=== PATIENT | male | born 1965 | race Caucasian/White ===

== ENCOUNTER 2017-12-03 18:23 | Emergency (ER) | payer OTHER ==
[~2017-12-03] VITALS: Ht 170.2 cm; Wt 63.5 kg
[~2017-12-03 18:23] MED LIST: ACET325 PO; ALUMAG30SU PO; ASCO500 PO; Advil200 M1 PO; Allergy Medicin25 MG PO; CHOL10002; CHOL10002 PO; CIPR250 PO; CODACE30 PO; CODGUAEL PO; Central-Vite1 EAC3 PO; DIPH50 PO; EAR WAX DROPS15 ML BOTHEARS; IBUP400 PO; IODINE TP; LAVAP17G PO; LEVFLO500 PO; LEVO750 PO; LOPE2C PO; MAALOX ADVANCE1 EACH PO; Multiple Vitam1 EAC1 PO; OMEP40CA12 PO; Omeprazole20 M1 PO; ROBITUSSIN COU118 M1 PO; SERT50 PO; SKIEMOTC TOP; TAMS.4ER PO; TRIPLE ANTIBIO1 EACH TP; Zosyn 4.54.5 GM/100 IV; [UNRECOGNIZED DRUG - OTHER] TOP
[2017-12-03 18:57] LABS: BASOPHILS ABSOLUTE AUTO 0.03 K/mm3 (0.00-0.23); BASOPHILS PERCENT AUTO 0 % (0-2); EOSINOPHILS ABSOLUTE AUTO 0.12 K/mm3 (0.00-0.68); EOSINOPHILS PERCENT AUTO 1 % (0-6); Hematocrit 40.7 % (37.0-53.0); Hemoglobin 13.8 g/dL (13.5-17.5); IMMATURE GRAN ABSOLUTE AUTO 0.02 K/mm3 (0.00-0.10); IMMATURE GRAN PERCENT AUTO 0 % (0-1); LYMPHOCYTES ABSOLUTE AUTO 1.41 K/mm3 (0.84-5.20); LYMPHOCYTES PERCENT AUTO 14 % (21-46); MONOCYTES PERCENT AUTO 14 % (4-13); Mean Corpuscular HGB 28.9 pg (26.0-34.0); Mean Corpuscular HGB Conc 33.9 g/dL (31.5-36.5); Mean Corpuscular Volume 85 fL (80-100); Mean Platelet Volume 9.4 fL (9.1-12.4); NEUTROPHILS ABSOLUTE AUTO 6.84 K/mm3 (1.96-9.15); NEUTROPHILS PERCENT AUTO 70 % (41-73); Platelet Count 236 K/mm3 (150-400); RDW Standard Deviation 43.5 fL (35.1-46.3); Red Blood Cell Count 4.78 M/mm3 (4.30-5.90); White Blood Cell Count 9.82 K/mm3 (4.00-11.30)
[2017-12-03 19:11] LABS: Alanine Aminotransfer (ALT/SGP 18 U/L (12-78); Albumin, Blood 3.7 g/dL (3.4-5.0); Albumin/Globulin Ratio 0.9 (0.8-1.8); Alk Phos 154 U/L (50-136); Anion Gap 10 mmol/L (6-16); Aspartate Aminotrans (AST/SGOT 14 U/L (12-37); Bilirubin, Total 0.4 mg/dL (0.1-1.0); Blood Urea Nitrogen 15 mg/dL (8-24); Bun/Creatinine Ratio 15.4 (12.0-20.0); CO2, Blood 22 mmol/L (21-32); Calcium, Blood 8.5 mg/dL (8.5-10.1); Chloride, Blood 104 mmol/L (98-108); Creatinine, Blood 0.97 mg/dL (0.60-1.20); Globulin, Blood 4.2 g/dL (2.2-4.0); Glomerular Filtration Rate >60 (60-); Glucose, Blood 113 mg/dL (70-99); Potassium, Blood 3.9 mmol/L (3.5-5.5); Sodium, Blood 136 mmol/L (136-145); Total Protein, Blood 7.9 g/dL (6.4-8.2)
[2017-12-03 21:30] LABS: Source, Urine Clean Catch
[2017-12-03 21:32] LABS: Bilirubin, Urine Neg (Neg); Blood, Urine 3+ (Neg); Glucose Qualitative, Urine Neg (Neg); Ketones, Urine Neg (Neg); Leukocyte Esterase, Urine 3+ (Neg); Nitrite, Urine Neg (Neg); Protein, Urine 2+ (Neg); Specific Gravity, Urine 1.015 (1.003-1.022); Urobilinogen, Urine NORM (Normal)
[2017-12-03] MEDS ORDERED: Lisinopril2.5 MG (21:37)
[2017-12-03 21:39] LABS: Appearance, Urine Cloudy (Clear); Color, Urine Yellow (P-Yellow)
[2017-12-03 21:40] LABS: Red Blood Cells, Urine 50-100 /hpf (0-2); White Blood Cells, Urine 50-100 /hpf (0-5)
[2017-12-03 21:41] LABS: Amorphous Light (0-Heavy); Bacteria Many /hpf; Squamous Epithelial Cells Not Seen /hpf (Few)
[2017-12-03 22:18] LABS: Influenza A Negative (NEGATIVE); Influenza B Negative (NEGATIVE)
[2017-12-03] MEDS ORDERED: Cipro500 MG PO (22:30)
== END 2017-12-03 22:56 | disposition home or self-care (01) ==
LOC: ER 18:23
PROVIDERS: Emergency Medicine
DX: T83.511A Infection and inflammatory reaction due to indwelling urethral catheter, initial encounter (principal); N39.0 Urinary tract infection, site not specified; R05 Cough; R09.81 Nasal congestion; Z88.1 Allergy status to other antibiotic agents; Z88.8 Allergy status to other drugs, medicaments and biological substances; Z79.899 Other long term (current) drug therapy
CPT/HCPCS: 36415; 71045; 80053; 81001; 85025; 87804; 99283

== ENCOUNTER 2018-12-18 16:38 | Inpatient (IN) | payer OTHER ==
[~2018-12-18] VITALS: Ht 170.2 cm; Wt 59.0 kg
[~2018-12-18 16:38] MED LIST changes: -CHOL10002; +Cipro500 MG PO
[2018-12-18 18:00] LABS: Source, Urine Catheter
[2018-12-18 18:14] LABS: BASOPHILS ABSOLUTE AUTO 0.02 K/mm3 (0.00-0.23); BASOPHILS PERCENT AUTO 0 % (0-2); EOSINOPHILS PERCENT AUTO 0 % (0-6); Hematocrit 42.2 % (37.0-53.0); Hemoglobin 13.8 g/dL (13.5-17.5); IMMATURE GRAN ABSOLUTE AUTO 0.17 K/mm3 (0.00-0.10); IMMATURE GRAN PERCENT AUTO 1 % (0-1); LYMPHOCYTES PERCENT AUTO 4 % (21-46); MONOCYTES ABSOLUTE AUTO 1.86 K/mm3 (0.16-1.47); MONOCYTES PERCENT AUTO 9 % (4-13); Mean Corpuscular HGB 29.4 pg (26.0-34.0); Mean Corpuscular HGB Conc 32.7 g/dL (31.5-36.5); Mean Corpuscular Volume 90 fL (80-100); Mean Platelet Volume 9.8 fL (9.1-12.4); NEUTROPHILS ABSOLUTE AUTO 17.04 K/mm3 (1.96-9.15); NEUTROPHILS PERCENT AUTO 86 % (41-73); Platelet Count 309 K/mm3 (150-400); RDW Coefficient Variation 13.9 % (11.7-14.2); RDW Standard Deviation 46.1 fL (35.1-46.3); White Blood Cell Count 19.89 K/mm3 (4.00-11.30)
[2018-12-18 18:16] LABS: Bilirubin, Urine Neg (Neg); Blood, Urine 5+ (Neg); Glucose Qualitative, Urine Neg (Neg); Ketones, Urine Neg (Neg); Leukocyte Esterase, Urine 3+ (Neg); Nitrite, Urine Neg (Neg); Protein, Urine 3+ (Neg); Urobilinogen, Urine NORM (Normal)
[2018-12-18 18:25] LABS: Albumin, Blood 3.5 g/dL (3.4-5.0); Albumin/Globulin Ratio 0.7 (0.8-1.8); Bilirubin, Total 1.2 mg/dL (0.1-1.0); Bun/Creatinine Ratio 14.4 (12.0-20.0); Calcium, Blood 9.5 mg/dL (8.5-10.1); Creatinine, Blood 2.15 mg/dL (0.60-1.20); Globulin, Blood 5.1 g/dL (2.2-4.0); Potassium, Blood 3.9 mmol/L (3.5-5.5); Total Protein, Blood 8.6 g/dL (6.4-8.2)
[2018-12-18 18:46] LABS: Appearance, Urine Cloudy (Clear); Color, Urine Yellow (P-Yellow)
[2018-12-18 18:47] LABS: White Blood Cells, Urine TNTC /hpf (0-5)
[2018-12-18 18:48] LABS: Bacteria Many /hpf; Squamous Epithelial Cells Not Seen /hpf (Few)
[2018-12-18] MEDS ORDERED: Cerovite Advan1 EACH PO (20:02)
[2018-12-18] MEDS ORDERED: C-1000 WITH R1000 MG PO (20:03)
[2018-12-18 20:05] LABS: Source, Urine Catheter
[2018-12-18] MEDS ORDERED: Lisinopril2.5 MG PO (20:05)
[2018-12-18] MEDS ORDERED: SERT50 PO (20:06)
[2018-12-18] MEDS ORDERED: CHOL10002 PO (20:07)
[2018-12-18 20:11] LABS: Bilirubin, Urine Neg (Neg); Blood, Urine 2+ (Neg); Glucose Qualitative, Urine Neg (Neg); Ketones, Urine 1+ (Neg); Leukocyte Esterase, Urine 3+ (Neg); Nitrite, Urine Neg (Neg); Protein, Urine 2+ (Neg); Specific Gravity, Urine 1.015 (1.003-1.022); Urobilinogen, Urine NORM (Normal)
[2018-12-18 20:27] LABS: Appearance, Urine Hazy (Clear); Color, Urine Yellow (P-Yellow)
[2018-12-18 20:28] LABS: Squamous Epithelial Cells Not Seen /hpf (Few); White Blood Cells, Urine TNTC /hpf (0-5)
[2018-12-18 20:30] LABS: Bacteria Mod /hpf
[2018-12-18 20:54] LABS: Magnesium, Blood 2.1 mg/dL (1.6-2.4); Phosphorus, Blood 2.4 mg/dL (2.5-4.9); Uric Acid, Blood 5.6 mg/dL (3.5-7.2)
--- NOTE | 2018-12-19 03:59 | NUR ---
Shift summary: Pt admitted last pm for uti. Andrew in place and urine sample sent to lab. Pt developmentally delayed and bedridden but can answer questions appropriately and is cooperative with cares. Both hands are contracted so pt needs help with feeding. Levoquin started in ER. Admission completed as much as I could do. Pt not a good historian.
[2018-12-19 05:28] LABS: Hematocrit 35.3 % (37.0-53.0); Hemoglobin 11.5 g/dL (13.5-17.5); Mean Corpuscular HGB 29.3 pg (26.0-34.0); Mean Corpuscular HGB Conc 32.6 g/dL (31.5-36.5); Mean Corpuscular Volume 90 fL (80-100); Mean Platelet Volume 9.6 fL (9.1-12.4); Platelet Count 213 K/mm3 (150-400); RDW Standard Deviation 46.4 fL (35.1-46.3); Red Blood Cell Count 3.93 M/mm3 (4.30-5.90)
[2018-12-19 06:01] LABS: Bun/Creatinine Ratio 18.3 (12.0-20.0); Calcium, Blood 8.4 mg/dL (8.5-10.1); Creatinine, Blood 1.42 mg/dL (0.60-1.20); Magnesium, Blood 2.1 mg/dL (1.6-2.4); Potassium, Blood 3.6 mmol/L (3.5-5.5)
--- NOTE | 2018-12-19 11:25 | NUR ---
PATIENTS CAREGIVER FROM NURSING HOME WAS HERE AND STATED PATIENT IS NOT A FEEDER AND IS CAPABLE OF FEEDING HIMSELF IF FOOD IS CHOPPED INTO SMALL BITE SIZE PIECES. THIS IS HOW IT IS DONE AT HOME. SO THIS SI WHAT I WILL TRY FOR LUNCH.
--- NOTE | 2018-12-19 12:51 | NUR ---
PATIENT WAS ABLE TO FEED HIMSELF THIS AFTERNOON WHEN WE GAVE HIM HIS TRAY FOR LUNCH. WE ORDERED FINGER FOODS AND LET HIM TRY IT AND WAS VERY SUCCESSFUL AND WAS ABLE TO TELL ME HE WAS DONE.
--- NOTE | 2018-12-19 19:21 | NUR ---
SHIFT SUMMARY: NO ACUTE CHANGES TO REPORT THIS SHIFT. PT DEVELOPMENTALLY DELAYED; CALM; APPROPRIATE; COOPERATIVE WITH CARE. MEDICATED FOR PAIN PER EMAR. TELE IN PLACE; ST @ 102 PER COOLING TOWER OPERATOR DURING MORNING ASSESSMENT. UTI; CHRONIC RODRIGUEZ; POSITIVE BLOOD CULTURE REPORTED BY LAB THIS SHIFT; DR JANE. NS CONTINUING; IV ABX CONTINUING. REPORT GIVEN TO ONCOMING RN.
[2018-12-20 05:20] LABS: BASOPHILS ABSOLUTE AUTO 0.01 K/mm3 (0.00-0.23); BASOPHILS PERCENT AUTO 0 % (0-2); EOSINOPHILS ABSOLUTE AUTO 0.01 K/mm3 (0.00-0.68); EOSINOPHILS PERCENT AUTO 0 % (0-6); Hematocrit 33.8 % (37.0-53.0); Hemoglobin 11.1 g/dL (13.5-17.5); IMMATURE GRAN ABSOLUTE AUTO 0.04 K/mm3 (0.00-0.10); IMMATURE GRAN PERCENT AUTO 1 % (0-1); LYMPHOCYTES ABSOLUTE AUTO 1.18 K/mm3 (0.84-5.20); LYMPHOCYTES PERCENT AUTO 16 % (21-46); MONOCYTES ABSOLUTE AUTO 1.08 K/mm3 (0.16-1.47); MONOCYTES PERCENT AUTO 14 % (4-13); Mean Corpuscular HGB Conc 32.8 g/dL (31.5-36.5); Mean Corpuscular Volume 88 fL (80-100); Mean Platelet Volume 9.9 fL (9.1-12.4); NEUTROPHILS ABSOLUTE AUTO 5.17 K/mm3 (1.96-9.15); NEUTROPHILS PERCENT AUTO 69 % (41-73); Platelet Count 185 K/mm3 (150-400); RDW Coefficient Variation 14.1 % (11.7-14.2); RDW Standard Deviation 45.6 fL (35.1-46.3); Red Blood Cell Count 3.83 M/mm3 (4.30-5.90); White Blood Cell Count 7.49 K/mm3 (4.00-11.30)
[2018-12-20 05:39] LABS: Anion Gap 12 mmol/L (6-16); Blood Urea Nitrogen 20 mg/dL (8-24); Bun/Creatinine Ratio 19.4 (12.0-20.0); CO2, Blood 23 mmol/L (21-32); Calcium, Blood 8.3 mg/dL (8.5-10.1); Chloride, Blood 107 mmol/L (98-108); Creatinine, Blood 1.03 mg/dL (0.60-1.20); Glomerular Filtration Rate >60 (60-); Glucose, Blood 97 mg/dL (70-99); Potassium, Blood 3.2 mmol/L (3.5-5.5); Sodium, Blood 142 mmol/L (136-145)
--- NOTE | 2018-12-20 07:46 | NUR ---
SHIFT SUMMARY PT HAD NO COMPLAINTS OR ISSUES NOTED. PT SLEPT T/O THE SHIFT. CALL LIGHT IN REACH.
--- NOTE | 2018-12-20 16:51 | NUR ---
NOTIFIED DR. EL PT REFUSING PO POTASSIUM. DR. EL SAID HE WILL PUT IN ORDERS FOR IV POTASSIUM. NO OTHER NEW ORDERS AT THIS TIME.
--- NOTE | 2018-12-20 18:07 | NUR ---
SHIFT SUMMARY- PT RESPONDS TO VERBAL STIMULI. PT UNABLE TO ANSWER ANY OF MY AXO QUESTIONS. PT ABLE TO ANSWER SIMPLE YES/NO QUESTIONS. PT REFUSED PO POTASSIUM THIS AM. DR. EL ORDERED IV POTASSIUM. PT DENIES PAIN. DENIES N/V. DENIES SOB. RESP E/U ON RA. NSR IN THE 70'S PER PCU BOARDING SPECIALIST. RODRIGUEZ PATENT AND DRAINING CLEAR YELLOW URINE. TURNS Q2H. BED ALARM ON. CALL LIGHT IN REACH. NO OTHER SIGNIFICANT CHANGES THIS SHIFT.
--- NOTE | 2018-12-21 05:05 | NUR ---
SHIFT SUMMARY PT HAS SLEPT T/O SHIFT. NO ISSUES NOTED. PT CURRENTLY SLEEPING AND BREATHING EASY. CALL LIGHT IN REACH.
--- NOTE | 2018-12-21 17:46 | NUR ---
SHIFT SUMMARY- PT DENIES PAIN. DENIES N/V. DENIES SOB. RESP E/U ON RA. TURNS Q2H. NSR WITH OCCASSIONAL PVC'S AT 74 PER PCU AERIAL TRAM OPERATOR. IV ANTIBIOTICS DC'D. PT STARTED ON PO CIPRO THIS AM. NO OTHER SIGNIFICANT CHANGES THIS SHIFT.
--- NOTE | 2018-12-22 05:28 | NUR ---
SHIFT SUMMARY PT SLEPT T/O SHIFT. NO ISSUES NOTED. PT CURRENTLY SLEEPING AND BREATHING EASY. CALL LIGHT IN REACH.
--- NOTE | 2018-12-22 12:03 | NUR ---
JAIRO FROM [facility] [address] CALLED IN FOR AN UPDATE, DISCHARGE WOULD BE PREFERRED PRIOR TO 1500, THIS IS WHEN THE SENIOR ENGINEERING TECHNICIAN IS AVAILABLE.
[2018-12-22] MEDS ORDERED: CIPR500 PO (15:59)
[2018-12-22] MEDS ORDERED: PROBIOTIC GOLD1 EACH PO (16:01)
--- NOTE | 2018-12-22 17:51 | NUR ---
SHIFT SUMMARY PT A&O TO SELF. MOSTLY NON-VERBAL AT BASE LINE, SPEECH IS UNCOMPREHENSIBLE. PT CALM AND COOPERATIVE WITH CARE. RESTING IN BED DURING SHIFT, REPOSIIONED FOR COMFORT, PT ASSIST WITH REPOSITIONING. PT DENIES PAIN, SOB AND N/V, NO S/SX OF DISTRESS. PT RECEIVING PO ANTIBITOICS AN PROBIOTICS. VSS. NO ACUTE CHANGES NOTED DURING SHIFT. PT CAREGIVERJAIRO IN TO PICK PT UP FOR DISCHARGE. CAREGIVER/PATIENT EDUCATED OF DISCHARGE INSTRUCTIONS, MEDICATIONS AND FOLLOW UP APPOINTMENTS. PRESCRIPTIONS FAXED TO [employer] [employer], PER CAREGIVER REQUEST. PT LEFT ROOM VIA HOME WHEELCHAIR WITH JAIRO AT [id number]. PT STABLE UPON DISCAHRGE.
== END 2018-12-22 16:51 | disposition home or self-care (01) | DRG 698 ==
LOC: ER 16:38 → MEDS 19:56 → ENPENDDIS 12-22 15:31 → MEDS 12-22 16:51
PROVIDERS: Emergency Medicine; Hospitalist; Nurse Practitioner Acute Care; Physician Assistant; ADMIT Internal Medicine
DX: T83.511A Infection and inflammatory reaction due to indwelling urethral catheter, initial encounter (principal); A41.9 Sepsis, unspecified organism; R65.20 Severe sepsis without septic shock; N17.9 Acute kidney failure, unspecified; N12 Tubulo-interstitial nephritis, not specified as acute or chronic; F32.9 Major depressive disorder, single episode, unspecified; R62.50 Unspecified lack of expected normal physiological development in childhood; K21.9 Gastro-esophageal reflux disease without esophagitis; Z88.1 Allergy status to other antibiotic agents
CPT/HCPCS: 36415; 51702; 74177; 76770; 80048; 80053; 81001; 82550; 82570; 83605; 83735; 84100; 84132; 84300; 84550; 85025; 85027; 87040; 87077; 87086; 87147; 87186; 96361; 96365; 99284-25; A9270-GY; J1650; J1956; J3480; J7030; J7120; Q9967

== ENCOUNTER 2019-08-20 17:06 | Emergency (ER) | payer OTHER ==
[~2019-08-20] VITALS: Ht 170.2 cm; Wt 72.6 kg
[~2019-08-20 17:06] MED LIST changes: +C-1000 WITH R1000 MG PO; +CIPR500 PO; +Cerovite Advan1 EACH PO; +DOCU100 PO; +Lisinopril2.5 MG PO; +OMEPRAZOLE MAGN20 MG PO; +ONDA4ODT MM; +PROBIOTIC GOLD1 EACH PO
[2019-08-20 19:56] LABS: Source, Urine Catheter
[2019-08-20 20:04] LABS: Bilirubin, Urine Neg (Neg); Blood, Urine 5+ (Neg); Glucose Qualitative, Urine Neg (Neg); Ketones, Urine Neg (Neg); Leukocyte Esterase, Urine 3+ (Neg); Nitrite, Urine Pos (Neg); Protein, Urine 2+ (Neg); Urobilinogen, Urine NORM (Normal); pH, Urine 6.5 (5.0-8.0)
[2019-08-20] MEDS ORDERED: Omeprazole20 M1 PO (20:06)
[2019-08-20] MEDS ORDERED: SERT50 PO (20:06)
[2019-08-20 20:07] LABS: Appearance, Urine Hazy (Clear); Color, Urine Yellow (P-Yellow)
[2019-08-20 20:19] LABS: Bacteria Many /hpf; Mucus Light (0-Heavy); Squamous Epithelial Cells Few /hpf (Few); White Blood Cells, Urine 50-100 /hpf (0-5)
== END 2019-08-20 20:30 | disposition home or self-care (01) ==
LOC: ER 17:06
PROVIDERS: Physician Assistant
DX: Z46.6 Encounter for fitting and adjustment of urinary device (principal); Z76.0 Encounter for issue of repeat prescription; F32.9 Major depressive disorder, single episode, unspecified; I10 Essential (primary) hypertension; K21.9 Gastro-esophageal reflux disease without esophagitis; Z79.899 Other long term (current) drug therapy
CPT/HCPCS: 81001; 87086; 99283

== ENCOUNTER 2020-01-22 10:08 | Emergency (ER) | payer OTHER ==
[~2020-01-22] VITALS: Ht 165.1 cm; Wt 63.5 kg
[~2020-01-22 10:08] MED LIST changes: +ANTIFUNGAL TOP; +AUGMENTIN PO; +BENADRYL25 MG PO; +Bactrim Ds Tab1 EACH PO; +Cerovite Silve1 EACH PO; +DEBROX BOTHEARS; +EUCERIN CREAM TOP; +EUCERIN ORIGIN250 ML TOP; +FINA5 PO; +LORA.5 PO; +MIRALAX17 GM PO; +ROBITUSSIN PO; +VIT C PO
[2020-01-22 10:32] LABS: BASOPHILS ABSOLUTE AUTO 0.04 K/mm3 (0.00-0.23); BASOPHILS PERCENT AUTO 1 % (0-2); EOSINOPHILS ABSOLUTE AUTO 0.19 K/mm3 (0.00-0.68); EOSINOPHILS PERCENT AUTO 2 % (0-6); Hematocrit 40.9 % (37.0-53.0); Hemoglobin 13.1 g/dL (13.5-17.5); IMMATURE GRAN PERCENT AUTO 1 % (0-1); LYMPHOCYTES ABSOLUTE AUTO 2.16 K/mm3 (0.84-5.20); LYMPHOCYTES PERCENT AUTO 25 % (21-46); MONOCYTES PERCENT AUTO 9 % (4-13); Mean Corpuscular HGB 28.7 pg (26.0-34.0); Mean Corpuscular Volume 90 fL (80-100); Mean Platelet Volume 8.7 fL (9.1-12.4); NEUTROPHILS ABSOLUTE AUTO 5.31 K/mm3 (1.96-9.15); NEUTROPHILS PERCENT AUTO 62 % (41-73); Platelet Count 434 K/mm3 (150-400); RDW Coefficient Variation 14.1 % (11.7-14.2); RDW Standard Deviation 46.7 fL (35.1-46.3); Red Blood Cell Count 4.56 M/mm3 (4.30-5.90)
[2020-01-22 10:50] LABS: Alanine Aminotransfer (ALT/SGP 24 U/L (12-78); Albumin, Blood 3.1 g/dL (3.4-5.0); Albumin/Globulin Ratio 0.6 (0.8-1.8); Alk Phos 119 U/L (50-136); Anion Gap 7 mmol/L (6-16); Aspartate Aminotrans (AST/SGOT 12 U/L (12-37); Bilirubin, Total 0.3 mg/dL (0.1-1.0); Blood Urea Nitrogen 19 mg/dL (8-24); Bun/Creatinine Ratio 22.1 (12.0-20.0); CO2, Blood 24 mmol/L (21-32); Calcium, Blood 8.8 mg/dL (8.5-10.1); Chloride, Blood 106 mmol/L (98-108); Creatinine, Blood 0.86 mg/dL (0.60-1.20); Globulin, Blood 4.9 g/dL (2.2-4.0); Glomerular Filtration Rate >60 (60-); Glucose, Blood 107 mg/dL (70-99); Potassium, Blood 4.8 mmol/L (3.5-5.5); Sodium, Blood 137 mmol/L (136-145)
--- NOTE | 2020-01-22 13:30 | NUR ---
PT DC'D HOME. CAREGIVER WAS GIVEN VERBAL INSTRUCTIONS, STATES SHE DID NOT NEED PRINTED OUT INSTRUCTIONS SINCE THE SAME PROCEDURE WAS DONE VERY RECENTLY. BOTH NEPH TUBES PATENT AND DRAINING AT TIME OF PT DC BACK TO CUSTODIAL. OUT TO VAN VIA W/C. IV DC'D, CATH INTACT. DR MORE AWARE OF PATIENT WANTING TO BE DC'D HOME PRIOR TO 2 HOURS POST PROCEDURE.
== END 2020-01-22 12:09 | disposition other institution (70) ==
LOC: ER 10:08
PROVIDERS: Emergency Medicine
DX: T83.022A Displacement of nephrostomy catheter, initial encounter (principal); F32.9 Major depressive disorder, single episode, unspecified; I10 Essential (primary) hypertension; K21.9 Gastro-esophageal reflux disease without esophagitis; N40.0 Benign prostatic hyperplasia without lower urinary tract symptoms; Z88.0 Allergy status to penicillin; Z88.1 Allergy status to other antibiotic agents; Z88.8 Allergy status to other drugs, medicaments and biological substances; Z79.899 Other long term (current) drug therapy
CPT/HCPCS: 36415; 76937; 80053; 85025; 99152; 99153; 99284-25; C1729; C1769; C1887; C1894; J2250; J3010; J7030; J7040; Q9967

== ENCOUNTER 2020-01-26 13:54 | Day surgery (SDC) | payer OTHER ==
[~2020-01-26] VITALS: Ht 170.2 cm; Wt 59.0 kg
--- NOTE | 2020-01-26 15:50 | NUR ---
PT TO RECOVERY ROOM POST PROCEDURE. PT IS DROWSY, ANSWERING SIMPLE QUESTIONS-WNL FOR PT, DENIES PAIN OR DISCOMFORT. MONITOR SR 70'S, B/P 141/74, AFEBRILE, SPO2 94% RA. L FLANK-NEPH TUBE SITE NO SWELLING/HEMATOMA, SECURED WITH STAY FIX DRSG, CONNECTED TO DRAINAGE BAG DRAINING BROWN TINGED URINE. PT'S CAREGIVE AT BEDSIDE, ATTENTIVE.
--- NOTE | 2020-01-26 16:34 | NUR ---
PT TOOK DINNER WITHOUT PROBLEM.
--- NOTE | 2020-01-26 17:20 | NUR ---
PT DRESSED WITH ASSISTANCT, SITE UNCHANGED-IV REMOVED, CANNULA INTACT. PT WAS ASSISTED TRANSFERRING BACK TO W/C. PT AND CAREGIVER RECEIVED DISCHARGE INSTRUCTIONS, MED LIST AND AFTER CARE INSTRUCTIONS; VERBALIZED GOOD UNDERSTANDING. PT LEFT FACILITY VIA W/C WITH CAREGIVER, CONDITION STABLE.
== END 2020-01-26 22:34 | disposition home or self-care (01) ==
LOC: MHTC 13:54
DX: T83.022A Displacement of nephrostomy catheter, initial encounter (principal); T83.193A Other mechanical complication of other urinary stent, initial encounter; N13.30 Unspecified hydronephrosis
CPT/HCPCS: 50432; 99152; 99153; C1729; C1769; J2250; J3010; J7030; Q9967

== ENCOUNTER 2020-02-06 17:24 | Emergency (ER) | payer OTHER ==
[~2020-02-06] VITALS: Ht 172.7 cm; Wt 59.0 kg
[2020-02-06 18:36] LABS: Source, Urine Catheter
[2020-02-06 18:40] LABS: Bilirubin, Urine Neg (Neg); Blood, Urine 5+ (Neg); Glucose Qualitative, Urine Neg (Neg); Ketones, Urine 1+ (Neg); Leukocyte Esterase, Urine 3+ (Neg); Nitrite, Urine Neg (Neg); Protein, Urine 4+ (Neg); Urobilinogen, Urine NORM (Normal)
[2020-02-06 19:24] LABS: Appearance, Urine Cloudy (Clear); Color, Urine Yellow (P-Yellow)
[2020-02-06 19:25] LABS: Bacteria Many /hpf; Mucus Mod (0-Heavy); Squamous Epithelial Cells Few /hpf (Few); White Blood Cells, Urine TNTC /hpf (0-5)
[2020-02-06 20:40] LABS: BASOPHILS ABSOLUTE AUTO 0.13 K/mm3 (0.00-0.23); BASOPHILS PERCENT AUTO 0 % (0-2); EOSINOPHILS PERCENT AUTO 0 % (0-6); Hemoglobin 12.5 g/dL (13.5-17.5); IMMATURE GRAN ABSOLUTE AUTO 0.84 K/mm3 (0.00-0.10); IMMATURE GRAN PERCENT AUTO 2 % (0-1); LYMPHOCYTES ABSOLUTE AUTO 2.53 K/mm3 (0.84-5.20); LYMPHOCYTES PERCENT AUTO 5 % (21-46); MONOCYTES ABSOLUTE AUTO 3.34 K/mm3 (0.16-1.47); MONOCYTES PERCENT AUTO 7 % (4-13); Mean Corpuscular HGB 28.1 pg (26.0-34.0); Mean Corpuscular HGB Conc 31.3 g/dL (31.5-36.5); Mean Corpuscular Volume 90 fL (80-100); NEUTROPHILS ABSOLUTE AUTO 41.18 K/mm3 (1.96-9.15); NEUTROPHILS PERCENT AUTO 86 % (41-73); Platelet Count 465 K/mm3 (150-400); RDW Coefficient Variation 14.9 % (11.7-14.2); RDW Standard Deviation 49.8 fL (35.1-46.3); Red Blood Cell Count 4.45 M/mm3 (4.30-5.90); White Blood Cell Count 48.02 K/mm3 (4.00-11.30)
[2020-02-06] MEDS ORDERED: OMEGA-3 FISH1000 MG PO (21:10)
[2020-02-06] MEDS ORDERED: ZOLOFT50 MG PO (21:11)
[2020-02-06] MEDS ORDERED: OMEPRAZOLE MAGN20 M1 PO (21:12)
[2020-02-06 21:18] LABS: Anion Gap 17 mmol/L (6-16); Blood Urea Nitrogen 28 mg/dL (8-24); Bun/Creatinine Ratio 19.3 (12.0-20.0); CO2, Blood 16 mmol/L (21-32); Calcium, Blood 8.9 mg/dL (8.5-10.1); Chloride, Blood 100 mmol/L (98-108); Creatinine, Blood 1.45 mg/dL (0.60-1.20); Glomerular Filtration Rate 53 (60-); Glucose, Blood 141 mg/dL (70-99); Potassium, Blood 4.1 mmol/L (3.5-5.5); Sodium, Blood 133 mmol/L (136-145); Troponin I <0.015 ng/mL (0.000-0.040)
== END 2020-02-07 00:35 | disposition short-term general hospital (02) ==
LOC: ER 17:24
PROVIDERS: Emergency Medicine; Physician Assistant
DX: T81.44XA Sepsis following a procedure, initial encounter (principal); T81.12XA Postprocedural septic shock, initial encounter; F32.9 Major depressive disorder, single episode, unspecified; I10 Essential (primary) hypertension; K21.9 Gastro-esophageal reflux disease without esophagitis; N40.0 Benign prostatic hyperplasia without lower urinary tract symptoms; Z88.0 Allergy status to penicillin; Z88.8 Allergy status to other drugs, medicaments and biological substances; Z88.1 Allergy status to other antibiotic agents; Z79.899 Other long term (current) drug therapy; Z93.6 Other artificial openings of urinary tract status
CPT/HCPCS: 36415; 74176; 80048; 81001; 83605; 84484; 85025; 87077; 87086; 87186; 93005; 93010; 96361; 96365; 96367; 96375; 99285-25; J2185; J2405; J7030; J7060; J7120

== ENCOUNTER 2020-10-28 11:17 | Day surgery (SDC) | payer OTHER ==
[~2020-10-28] VITALS: Ht 167.6 cm; Wt 61.4 kg
[~2020-10-28 11:17] MED LIST changes: -C-1000 WITH R1000 MG PO; +DIPH25 PO; +MULTI VITAMIN1 EACH PO; +Murine Ear Wax15 ML BOTHEARS; +OMEGA-3 FISH1000 M1 PO; +OMEGA-3 FISH1000 MG PO; +OMEPRAZOLE MAGN20 M1 PO; +PROBIOTIC250 MG PO; +Q-Tussin100 MG/5 M PO; +VITAMIN C500 M3 PO; +ZOLOFT50 MG PO; +[UNRECOGNIZED DRUG - REMARK] UD
[2020-11-16] MEDS ORDERED: Lisinopril2.5 MG PO (13:54)
== END 2020-10-28 13:16 | disposition home or self-care (01) ==
LOC: ORSCSDS 11:17
PROVIDERS: Internal Medicine Gastroenterology
PROC: 0DJD8ZZ Inspection of Lower Intestinal Tract, Via Natural or Artificial Opening Endoscopic (ICD-10-PCS; principal; 2020-10-28 12:30)
DX: Z12.11 Encounter for screening for malignant neoplasm of colon (principal); Z86.010 Personal history of colon polyps; K21.9 Gastro-esophageal reflux disease without esophagitis; Z79.899 Other long term (current) drug therapy
CPT/HCPCS: J0330; J0461; J2405; J2704; J7120

== ENCOUNTER 2020-11-23 08:34 | Day surgery (SDC) | payer OTHER ==
[~2020-11-23] VITALS: Ht 167.6 cm; Wt 61.8 kg
== END 2020-11-23 10:47 | disposition home or self-care (01) ==
LOC: ORSCSDS 08:34
PROVIDERS: Internal Medicine Gastroenterology
PROC: 0DBK8ZX Excision of Ascending Colon, Via Natural or Artificial Opening Endoscopic, Diagnostic (ICD-10-PCS; principal; 2020-11-23 09:45)
DX: Z12.11 Encounter for screening for malignant neoplasm of colon (principal); Z86.010 Personal history of colon polyps; D12.2 Benign neoplasm of ascending colon; K57.30 Diverticulosis of large intestine without perforation or abscess without bleeding; K64.1 Second degree hemorrhoids; E78.5 Hyperlipidemia, unspecified; Z79.899 Other long term (current) drug therapy
CPT/HCPCS: 88305; J2704; J7120

== ENCOUNTER 2023-04-17 08:08 | Inpatient (IN) | payer OTHER ==
[~2023-04-17] VITALS: Ht 170.2 cm; Wt 63.0 kg
[2023-04-17] MEDS ORDERED: FISH OIL 1,2001 EAC4 PO (08:50)
[2023-04-17] MEDS ORDERED: C COMPLEX1000 M1 PO (08:50)
[2023-04-17] MEDS ORDERED: Acetaminophen325 M1 PO (08:51)
[2023-04-17] MEDS ORDERED: DOCU100 PO (08:51)
[2023-04-17] MEDS ORDERED: OMEPRAZOLE MAGN20 MG PO (08:51)
[2023-04-17] MEDS ORDERED: SERT50 PO (08:51)
[2023-04-17] MEDS ORDERED: MIRALAX17 GM PO (08:51)
[2023-04-17] MEDS ORDERED: LORA.5 PO (08:52)
[2023-04-17 09:00] LABS: BASOPHILS ABSOLUTE AUTO 0.03 K/mm3 (0.00-0.23); BASOPHILS PERCENT AUTO 1 % (0-2); EOSINOPHILS ABSOLUTE AUTO 0.14 K/mm3 (0.00-0.68); EOSINOPHILS PERCENT AUTO 2 % (0-6); Hematocrit 40.9 % (37.0-53.0); Hemoglobin 13.8 g/dL (13.5-17.5); IMMATURE GRAN ABSOLUTE AUTO 0.02 K/mm3 (0.00-0.10); IMMATURE GRAN PERCENT AUTO 0 % (0-1); LYMPHOCYTES ABSOLUTE AUTO 1.83 K/mm3 (0.84-5.20); LYMPHOCYTES PERCENT AUTO 31 % (21-46); MONOCYTES ABSOLUTE AUTO 0.61 K/mm3 (0.16-1.47); MONOCYTES PERCENT AUTO 10 % (4-13); Mean Corpuscular HGB 29.5 pg (26.0-34.0); Mean Corpuscular HGB Conc 33.7 g/dL (31.5-36.5); Mean Corpuscular Volume 87 fL (80-100); Mean Platelet Volume 9.1 fL (9.1-12.4); NEUTROPHILS ABSOLUTE AUTO 3.35 K/mm3 (1.96-9.15); NEUTROPHILS PERCENT AUTO 56 % (41-73); Platelet Count 266 K/mm3 (150-400); RDW Standard Deviation 44.8 fL (35.1-46.3); Red Blood Cell Count 4.68 M/mm3 (4.30-5.90); White Blood Cell Count 5.98 K/mm3 (4.00-11.30)
[2023-04-17 09:23] LABS: Albumin, Blood 3.2 g/dL (3.4-5.0); Albumin/Globulin Ratio 0.7 (0.8-1.8); Bilirubin, Total 0.5 mg/dL (0.1-1.0); Bun/Creatinine Ratio 16.8 (12.0-20.0); Creatinine, Blood 1.25 mg/dL (0.60-1.20); Globulin, Blood 4.6 g/dL (2.2-4.0); Potassium, Blood 4.5 mmol/L (3.5-5.5); Total Protein, Blood 7.8 g/dL (6.4-8.2)
--- NOTE | 2023-04-17 11:41 | NUR ---
PT ADMITTED TO ROOM 334 FROM ED. ORIENTED TO ROOM AND CALL LIGHT. UNABLE TO DEMONSTRATE CALL LIGHT RELATED TO DEV.DELAY. BED ALARM SET. WILL KATHE CLOSE FOR SAFETY. PT AWARE HE IS TO BE NPO
[2023-04-17 13:52] VITALS: BP 146/92
--- NOTE | 2023-04-17 17:41 | NUR ---
1700 PT TX TO PRESURG FOR NEPH PLACEMENT WITH DR MORE. UROSTOMY PATENT ON R SIDE AND DRAINING CLEAR YELLOW- EMPTIED PRIOR TO TX. PT TAKEN IN BED FOR PROCEDURE. SISTER IN LAW KRISTY CONSENTED AND AWARE PT TAKEN FOR PROCEDURE. TELECINE OPERATOR JAIRO WILL COME AND STAY WITH PT AFTER PROCEDURE.
[2023-04-17 19:40] VITALS: BP 124/72
[2023-04-17] MEDS ORDERED: [UNRECOGNIZED DRUG - OTHER] PO (20:28)
[2023-04-17] MEDS ORDERED: ALBU90OI INH (20:29)
[2023-04-17] MEDS ORDERED: CARB10OTL BOTHEARS (20:30)
[2023-04-18 03:03] VITALS: BP 136/89
--- NOTE | 2023-04-18 05:23 | NUR ---
SHIFT SUMMARY PT IS UNABLE TO ANSWERS QUESTIONS DUE TO DEVELOPMENTAL DELAY, VERY PLEASANT AND COOPERATIVE WITH CARE, UP WITH 1 GB AND FWW, UROSTOMY ON RIGHT DRAINING RED TINGED URINE, LEFT NEPHROSTOMY WITH 200CC OUTPUT SO FAR THIS SHIFT, DRESSING CDI, BM THIS SHIFT, NO COMPLAINTS OF DISCOMFORT, FIRE MITIGATION ED PROVIDED, CONTINUE POC
[2023-04-18 07:34] VITALS: BP 127/80
[2023-04-18 09:55] LABS: BASOPHILS ABSOLUTE AUTO 0.02 K/mm3 (0.00-0.23); BASOPHILS PERCENT AUTO 0 % (0-2); EOSINOPHILS PERCENT AUTO 0 % (0-6); Hematocrit 40.8 % (37.0-53.0); IMMATURE GRAN ABSOLUTE AUTO 0.08 K/mm3 (0.00-0.10); IMMATURE GRAN PERCENT AUTO 1 % (0-1); LYMPHOCYTES ABSOLUTE AUTO 0.42 K/mm3 (0.84-5.20); LYMPHOCYTES PERCENT AUTO 2 % (21-46); MONOCYTES ABSOLUTE AUTO 0.93 K/mm3 (0.16-1.47); MONOCYTES PERCENT AUTO 5 % (4-13); Mean Corpuscular HGB 30.2 pg (26.0-34.0); Mean Corpuscular HGB Conc 34.3 g/dL (31.5-36.5); Mean Corpuscular Volume 88 fL (80-100); Mean Platelet Volume 9.3 fL (9.1-12.4); NEUTROPHILS ABSOLUTE AUTO 15.86 K/mm3 (1.96-9.15); NEUTROPHILS PERCENT AUTO 92 % (41-73); Platelet Count 263 K/mm3 (150-400); RDW Coefficient Variation 14.2 % (11.7-14.2); RDW Standard Deviation 45.1 fL (35.1-46.3); Red Blood Cell Count 4.64 M/mm3 (4.30-5.90); White Blood Cell Count 17.31 K/mm3 (4.00-11.30)
[2023-04-18 10:01] LABS: Albumin, Blood 3.5 g/dL (3.4-5.0); Anion Gap 11 mmol/L (6-16); Blood Urea Nitrogen 28 mg/dL (8-24); Bun/Creatinine Ratio 19.4 (12.0-20.0); CO2, Blood 20 mmol/L (21-32); Calcium, Blood 9.1 mg/dL (8.5-10.1); Chloride, Blood 110 mmol/L (98-108); Creatinine, Blood 1.44 mg/dL (0.60-1.20); Glomerular Filtration Rate 56 (60-); Glucose, Blood 126 mg/dL (70-99); Phosphorus, Blood 3.4 mg/dL (2.5-4.9); Potassium, Blood 4.4 mmol/L (3.5-5.5); Sodium, Blood 141 mmol/L (136-145)
--- NOTE | 2023-04-18 11:47 | NUR ---
"Spiritual care | Pt. request Pt. is awake in bed and welcomes my visit. Pt. displays evidence of being developmentally disabled, but is pleasant. Attempted to facilitate a life review. Pt. displayed evidence of increased trust when identifiying with his home and support system. Pt. gave approval for prayer so I prayed with the Pt. The pt. verbalized interest in having this mobility scooter repairer return to visit."
--- NOTE | 2023-04-18 17:24 | NUR ---
SHIFT SUMMARY NO ACUTE CHANGES NOTED DURING SHIFT. PT ALERT, DEVELOPMENTAL DELAY, BASELINE. PT ABLE TO VERBALIZE SOME NEEDS, USUALLY WITH ONE WORD RESPONSES. PT REMAINS ON RA. DIET CHANGED TO MECH SOFT TO ASSIST WITH CHEWING. NS INFUSING @ 100ML/HR. OUTPUT FROM UROSTOMY AND NEPHROSTOMY CONTINUED TO BE BLOODY AT BEGINNING OF SHIFT, NEPHROSTOMY OUTPUT TOWARDS END OF SHIFT SEEMED SLIGHLTY MORE SANCHO COLOR. WILL CONTINUE TO MONITOR. CALL LIGHT WITHIN REACH.
[2023-04-18 21:45] VITALS: BP 151/90
[2023-04-19 03:49] VITALS: BP 147/90
[2023-04-19 04:37] LABS: BASOPHILS ABSOLUTE AUTO 0.03 K/mm3 (0.00-0.23); BASOPHILS PERCENT AUTO 0 % (0-2); EOSINOPHILS ABSOLUTE AUTO 0.01 K/mm3 (0.00-0.68); EOSINOPHILS PERCENT AUTO 0 % (0-6); Hematocrit 37.7 % (37.0-53.0); Hemoglobin 12.6 g/dL (13.5-17.5); IMMATURE GRAN ABSOLUTE AUTO 0.03 K/mm3 (0.00-0.10); IMMATURE GRAN PERCENT AUTO 0 % (0-1); LYMPHOCYTES ABSOLUTE AUTO 0.96 K/mm3 (0.84-5.20); LYMPHOCYTES PERCENT AUTO 12 % (21-46); MONOCYTES ABSOLUTE AUTO 0.97 K/mm3 (0.16-1.47); MONOCYTES PERCENT AUTO 12 % (4-13); Mean Corpuscular HGB 29.6 pg (26.0-34.0); Mean Corpuscular HGB Conc 33.4 g/dL (31.5-36.5); Mean Corpuscular Volume 89 fL (80-100); Mean Platelet Volume 9.1 fL (9.1-12.4); NEUTROPHILS ABSOLUTE AUTO 6.02 K/mm3 (1.96-9.15); NEUTROPHILS PERCENT AUTO 75 % (41-73); Platelet Count 215 K/mm3 (150-400); RDW Coefficient Variation 14.3 % (11.7-14.2); Red Blood Cell Count 4.25 M/mm3 (4.30-5.90); White Blood Cell Count 8.02 K/mm3 (4.00-11.30)
[2023-04-19 05:03] LABS: Albumin, Blood 2.9 g/dL (3.4-5.0); Anion Gap 6 mmol/L (6-16); Blood Urea Nitrogen 30 mg/dL (8-24); Bun/Creatinine Ratio 20.7 (12.0-20.0); CO2, Blood 23 mmol/L (21-32); Calcium, Blood 8.6 mg/dL (8.5-10.1); Chloride, Blood 116 mmol/L (98-108); Creatinine, Blood 1.45 mg/dL (0.60-1.20); Glomerular Filtration Rate 56 (60-); Glucose, Blood 109 mg/dL (70-99); Phosphorus, Blood 2.3 mg/dL (2.5-4.9); Sodium, Blood 145 mmol/L (136-145)
--- NOTE | 2023-04-19 06:34 | NUR ---
PT IS A&O TO SELF DUE TO DEVELOPMENTAL DELAY, CAN MAKE SOME NEEDS KNOWM, COOPOERATIVE WITH CARE, SB WITH FWW AND GB TO BR, RA, NEPHROSTOMY DRAINING MORE CLEAR SANCHO THAN YESTERDAY WELL UROSTOMY, NO COMPLAINTS OF PAIN OR DISCOMFORT OVERNIGHT, FIRE SAFETY MITIGATION EDUCATION PROVIDED, CONTINUE POC
[2023-04-19 07:46] VITALS: BP 159/96
== END 2023-04-19 13:58 | disposition home or self-care (01) | DRG 699 ==
LOC: ER 08:08 → MEDS 08:09 → ENPENDDIS 04-19 09:26 → MEDS 04-19 13:58
PROVIDERS: Student in an Organized Health Care Education/Training Program; ADMIT Family Medicine
PROC: 0T9430Z Drainage of Left Kidney Pelvis with Drainage Device, Percutaneous Approach (ICD-10-PCS; principal; 2023-04-18)
DX: N99.520 Hemorrhage of incontinent external stoma of urinary tract (principal); N13.30 Unspecified hydronephrosis; N17.9 Acute kidney failure, unspecified; Y83.8 Other surgical procedures as the cause of abnormal reaction of the patient, or of later complication, without mention of misadventure at the time of the procedure; I12.9 Hypertensive chronic kidney disease with stage 1 through stage 4 chronic kidney disease, or unspecified chronic kidney disease; N18.30 Chronic kidney disease, stage 3 unspecified; F32.A Depression, unspecified; K21.9 Gastro-esophageal reflux disease without esophagitis; N40.0 Benign prostatic hyperplasia without lower urinary tract symptoms; R62.50 Unspecified lack of expected normal physiological development in childhood; D72.829 Elevated white blood cell count, unspecified; Z87.440 Personal history of urinary (tract) infections; Z90.79 Acquired absence of other genital organ(s); Z90.89 Acquired absence of other organs; Z88.1 Allergy status to other antibiotic agents; Z88.8 Allergy status to other drugs, medicaments and biological substances; Z79.899 Other long term (current) drug therapy; Z79.811 Long term (current) use of aromatase inhibitors; Z87.81 Personal history of (healed) traumatic fracture; Z98.890 Other specified postprocedural states; Z96.0 Presence of urogenital implants; Z86.69 Personal history of other diseases of the nervous system and sense organs
CPT/HCPCS: 36415; 76770; 80053; 80069; 85025; 99152; 99153; 99285-25; A9270; C1769; C1887; C1894; C2625; G0378; J2250; J3010; J7030; J7040; Q9967

== ENCOUNTER 2023-05-02 09:01 | Emergency (ER) | payer OTHER ==
[~2023-05-02] VITALS: Ht 165.1 cm; Wt 61.2 kg
[~2023-05-02 09:01] MED LIST changes: +ALBU90OI INH; +Acetaminophen325 M1 PO; +C COMPLEX1000 M1 PO; +CARB10OTL BOTHEARS; +FISH OIL 1,2001 EAC4 PO; +[UNRECOGNIZED DRUG - OTHER] PO
[2023-05-02 10:00] VITALS: BP 141/87
== END 2023-05-02 11:44 | disposition home or self-care (01) ==
LOC: ER 09:01
DX: N13.2 Hydronephrosis with renal and ureteral calculous obstruction (principal); Z88.1 Allergy status to other antibiotic agents; Z88.0 Allergy status to penicillin; Z88.8 Allergy status to other drugs, medicaments and biological substances
CPT/HCPCS: 76770; 99283-25

== ENCOUNTER 2023-07-07 16:10 | Emergency (ER) | payer OTHER ==
[~2023-07-07] VITALS: Ht 160 cm; Wt 65.8 kg
[2023-07-07 16:13] VITALS: BP 162/89
[2023-07-07 16:44] LABS: BASOPHILS ABSOLUTE AUTO 0.05 K/mm3 (0.00-0.23); BASOPHILS PERCENT AUTO 1 % (0-2); EOSINOPHILS ABSOLUTE AUTO 0.08 K/mm3 (0.00-0.68); EOSINOPHILS PERCENT AUTO 1 % (0-6); Hematocrit 41.6 % (37.0-53.0); Hemoglobin 13.8 g/dL (13.5-17.5); IMMATURE GRAN ABSOLUTE AUTO 0.03 K/mm3 (0.00-0.10); IMMATURE GRAN PERCENT AUTO 0 % (0-1); LYMPHOCYTES ABSOLUTE AUTO 2.16 K/mm3 (0.84-5.20); LYMPHOCYTES PERCENT AUTO 23 % (21-46); MONOCYTES ABSOLUTE AUTO 0.68 K/mm3 (0.16-1.47); MONOCYTES PERCENT AUTO 7 % (4-13); Mean Corpuscular HGB 29.1 pg (26.0-34.0); Mean Corpuscular HGB Conc 33.2 g/dL (31.5-36.5); Mean Corpuscular Volume 88 fL (80-100); Mean Platelet Volume 8.9 fL (9.1-12.4); NEUTROPHILS ABSOLUTE AUTO 6.58 K/mm3 (1.96-9.15); NEUTROPHILS PERCENT AUTO 69 % (41-73); Platelet Count 311 K/mm3 (150-400); RDW Coefficient Variation 13.9 % (11.7-14.2); RDW Standard Deviation 44.8 fL (35.1-46.3); Red Blood Cell Count 4.75 M/mm3 (4.30-5.90); White Blood Cell Count 9.58 K/mm3 (4.00-11.30)
[2023-07-07 17:09] LABS: Albumin, Blood 3.4 g/dL (3.4-5.0); Albumin/Globulin Ratio 0.5 (0.8-1.8); Bilirubin, Total 0.5 mg/dL (0.1-1.0); Bun/Creatinine Ratio 25.3 (12.0-20.0); Calcium, Blood 9.3 mg/dL (8.5-10.1); Creatinine, Blood 1.5 mg/dL (0.60-1.20); Globulin, Blood 6.3 g/dL (2.2-4.0); Potassium, Blood 4.2 mmol/L (3.5-5.5); Total Protein, Blood 9.7 g/dL (6.4-8.2)
[2023-07-07 17:22] LABS: Influenza A, PCR NEGATIVE (NEGATIVE); Influenza B, PCR NEGATIVE (NEGATIVE); Resp Syncytial Virus, PCR NEGATIVE (NEGATIVE); SARS-Cov-2 (COVID-19) PCR, MMC NEGATIVE (NEGATIVE)
[2023-07-07] MEDS ORDERED: ONDA4ODT MM (17:49)
[2023-07-08] MEDS ORDERED: BACITRACIN OINTMENT (16:00)
[2023-07-08] MEDS ORDERED: CARB10OTL (16:02)
[2023-07-08] MEDS ORDERED: MULVITA PO (16:03)
[2023-07-08] MEDS ORDERED: LORA.5 (16:03)
[2023-07-08] MEDS ORDERED: [UNRECOGNIZED DRUG - OTHER] (16:03)
== END 2023-07-07 18:02 | disposition home or self-care (01) ==
LOC: ER 16:10
PROVIDERS: Student in an Organized Health Care Education/Training Program
DX: J06.9 Acute upper respiratory infection, unspecified (principal); B97.89 Other viral agents as the cause of diseases classified elsewhere; R09.81 Nasal congestion; I10 Essential (primary) hypertension; R62.50 Unspecified lack of expected normal physiological development in childhood; K21.9 Gastro-esophageal reflux disease without esophagitis; Z20.822 Contact with and (suspected) exposure to COVID-19; F32.A Depression, unspecified; Z88.0 Allergy status to penicillin; Z88.1 Allergy status to other antibiotic agents; Z88.8 Allergy status to other drugs, medicaments and biological substances; Z79.899 Other long term (current) drug therapy
CPT/HCPCS: 0241U; 71046; 80053; 85025; 99283-25; A9270

== ENCOUNTER 2023-07-09 08:44 | Day surgery (SDC) | payer OTHER ==
[~2023-07-09] VITALS: Ht 162.6 cm; Wt 50.0 kg
[2023-07-09] VITALS (7 sets, daily range): BP systolic 108–147; BP diastolic 72–92
[~2023-07-09 08:44] MED LIST changes: +BACITRACIN OINTMENT; +CARB10OTL; +LORA.5; +MULVITA PO; +[UNRECOGNIZED DRUG - OTHER]
[2023-07-09] MEDS ORDERED: FISH OIL 1,0001 EA10 PO (09:10)
--- NOTE | 2023-07-09 10:16 | NUR ---
0.5 MG PO ATIVAN GIVEN PREPROCEDURE FOR ANXIETY. VSS
--- NOTE | 2023-07-09 11:15 | NUR ---
PATIENT ARRIVED TO RECOVERY ROOM RESTING COMFORTABLY IN BED. BILATERAL NEPH TUBES INTACT WITH ADEQUATE DRAINAGE. SITES C/D/I WITH STAY FIX DRESSINGS. PATIENT DENYING ANY PAIN. VSS ON RA.
--- NOTE | 2023-07-09 12:00 | NUR ---
PATIENT AWAKE, PATIENT SITTING UPRIGHT IN BED TOELRATING PO INTAKE WELL. PATIENT DENYING ANY PAIN. VSS ON RA. BILATERAL NEPH TUBES IN PLACE WITH ADEQUATE DRAINAGE.
--- NOTE | 2023-07-09 12:10 | NUR ---
PATIENTS CAREGIVER CALLED AND INFORMED OF DISCHARGE WITHIN THE HOUR
--- NOTE | 2023-07-09 13:12 | NUR ---
PATIENT RESTING COMFORTABLY IN BED WATCHING TV. PATIENT DENYING ANY PAIN. BILATERAL NEPH TUBES IN PLACE WITH ADEQUATE DRAINAGE. SITES C/D/I
--- NOTE | 2023-07-09 14:00 | NUR ---
CAREGIVER PRESENT AT BEDSIDE. PROCEDURE AND DISCHARGE INSTRUCTIONS EXPLAINED. MD PRESENT AT BEDSIDE TO DISCUSS PROCEDURE. ALL QUESTIONS WERE ANSWERED
--- NOTE | 2023-07-09 14:30 | NUR ---
PATIENT DISCHARGED BACK TO FACILITY AT THIS TIME. PIV REMOVED WITHOUT DIFFICULTY. BILATERAL NEPH TUBE SITES C/D/I, DRAINING WITHOUT DIFFICULTY. NEPH TUBE DRESSING CHANGE SUPPLIES PROVIDED. PATIENT TRANSFERRED TO CHAIR WITHOUT DIFFICULTY.
== END 2023-07-09 14:30 | disposition home or self-care (01) ==
LOC: MHTC 08:44
DX: N13.1 Hydronephrosis with ureteral stricture, not elsewhere classified (principal); Z87.442 Personal history of urinary calculi; Z98.890 Other specified postprocedural states; Z88.0 Allergy status to penicillin; Z88.1 Allergy status to other antibiotic agents; Z43.6 Encounter for attention to other artificial openings of urinary tract; R31.9 Hematuria, unspecified; Z91.81 History of falling; G80.9 Cerebral palsy, unspecified; R62.50 Unspecified lack of expected normal physiological development in childhood
CPT/HCPCS: 74018; 76937; 99152; 99153; 99284-25; A9270; C1729; C1769; C1887; C1894; J2250; J3010; J7030; J7050; Q9967

== ENCOUNTER 2023-07-09 21:24 | Emergency (ER) | payer OTHER ==
[~2023-07-09] VITALS: Ht 177.8 cm; Wt 70.3 kg
[~2023-07-09 21:24] MED LIST changes: +FISH OIL 1,0001 EA10 PO
[2023-07-09 23:21] VITALS: BP 117/63
== END 2023-07-10 02:18 | disposition home or self-care (01) ==
LOC: ER 21:24
DX: Z43.6 Encounter for attention to other artificial openings of urinary tract (principal); R31.9 Hematuria, unspecified; G80.9 Cerebral palsy, unspecified; R62.50 Unspecified lack of expected normal physiological development in childhood; Z91.81 History of falling
CPT/HCPCS: 74018; 99284-25

== ENCOUNTER 2023-07-12 11:01 | Emergency (ER) | payer OTHER ==
[~2023-07-12] VITALS: Ht 170.2 cm; Wt 58.1 kg
[~2023-07-12 11:01] MED LIST changes: -BACITRACIN OINTMENT; +BACITRACIN OINTMENT TOP; -CARB10OTL; -[UNRECOGNIZED DRUG - OTHER]; +[UNRECOGNIZED DRUG - OTHER] TOP
[2023-07-12 11:07] VITALS: BP 107/74
== END 2023-07-12 16:27 | disposition home or self-care (01) ==
LOC: ER 11:01
DX: T83.022A Displacement of nephrostomy catheter, initial encounter (principal); X58.XXXA Exposure to other specified factors, initial encounter; Z87.440 Personal history of urinary (tract) infections; Z88.1 Allergy status to other antibiotic agents; Z88.8 Allergy status to other drugs, medicaments and biological substances; Z79.51 Long term (current) use of inhaled steroids; Z79.899 Other long term (current) drug therapy
CPT/HCPCS: 76770; 99284-25

== ENCOUNTER 2023-07-16 09:36 | Inpatient (IN) | payer OTHER ==
[~2023-07-16] VITALS: Ht 170.2 cm; Wt 62.1 kg
[2023-07-16 12:35] LABS: BASOPHILS ABSOLUTE AUTO 0.05 K/mm3 (0.00-0.23); BASOPHILS PERCENT AUTO 0 % (0-2); EOSINOPHILS ABSOLUTE AUTO 0.15 K/mm3 (0.00-0.68); EOSINOPHILS PERCENT AUTO 1 % (0-6); Hematocrit 36.3 % (37.0-53.0); Hemoglobin 12.1 g/dL (13.5-17.5); IMMATURE GRAN ABSOLUTE AUTO 0.23 K/mm3 (0.00-0.10); IMMATURE GRAN PERCENT AUTO 2 % (0-1); LYMPHOCYTES ABSOLUTE AUTO 2.61 K/mm3 (0.84-5.20); LYMPHOCYTES PERCENT AUTO 23 % (21-46); MONOCYTES ABSOLUTE AUTO 0.61 K/mm3 (0.16-1.47); MONOCYTES PERCENT AUTO 5 % (4-13); Mean Corpuscular HGB 28.8 pg (26.0-34.0); Mean Corpuscular HGB Conc 33.3 g/dL (31.5-36.5); Mean Corpuscular Volume 86 fL (80-100); NEUTROPHILS ABSOLUTE AUTO 7.57 K/mm3 (1.96-9.15); NEUTROPHILS PERCENT AUTO 68 % (41-73); Platelet Count 326 K/mm3 (150-400); RDW Coefficient Variation 13.6 % (11.7-14.2); RDW Standard Deviation 42.6 fL (35.1-46.3); White Blood Cell Count 11.22 K/mm3 (4.00-11.30)
[2023-07-16 13:12] LABS: Source, Urine Nephrostomy
[2023-07-16 13:13] LABS: Albumin, Blood 2.8 g/dL (3.4-5.0); Albumin/Globulin Ratio 0.5 (0.8-1.8); Bilirubin, Total 0.4 mg/dL (0.1-1.0); Bun/Creatinine Ratio 17.5 (12.0-20.0); Calcium, Blood 8.9 mg/dL (8.5-10.1); Creatinine, Blood 1.37 mg/dL (0.60-1.20); Globulin, Blood 5.3 g/dL (2.2-4.0); Potassium, Blood 4.2 mmol/L (3.5-5.5); Total Protein, Blood 8.1 g/dL (6.4-8.2)
[2023-07-16 13:16] LABS: Appearance, Urine Cloudy (Clear); Bilirubin, Urine Neg (Neg); Blood, Urine 5+ (Neg); Color, Urine Yellow (P-Yellow); Glucose Qualitative, Urine Neg (Neg); Ketones, Urine Neg (Neg); Leukocyte Esterase, Urine 3+ (Neg); Nitrite, Urine Neg (Neg); Protein, Urine 2+ (Neg); Urobilinogen, Urine NORM (Normal)
[2023-07-16 13:30] LABS: Amorphous Light (0-Heavy); Bacteria Many /hpf; Red Blood Cells, Urine 25-50 /hpf (0-2); Squamous Epithelial Cells Rare /hpf (Few); White Blood Cells, Urine 25-50 /hpf (0-5)
[2023-07-16 17:11] VITALS: BP 124/81
--- NOTE | 2023-07-16 17:39 | NUR ---
PATIENT ARRIVED FROM [facility] AT 1705, RECEIVED BEDSIDE REPORT FROM NAVEEN WOODS. PT TRANSFERRED TO BED FROM [facility]. HAS BILATERAL NEPHROSTOMY TUBES: DRAINAGE IS SANGUINOUS IN L NEPH, DARK SEROSANG IN R NEPH. PT WEARING ABD BINDER TO DISCOURAGE HIM FROM PULLING AT THEM. UROSTOMY BAG WITH YELLOW URINE. SLEEPY, AROUSES TO SPEECH. BED ALARM ON, CALL LIGHT IN REACH.
[2023-07-16 19:26] VITALS: BP 129/79
[2023-07-16] MEDS ORDERED: ABC COMPLETE W1 EACH PO (19:57)
--- NOTE | 2023-07-16 20:24 | NUR ---
COUGHING UP PHLEGM, MUCOUS. COUGHED UP ALL OVER GOWN. HOB ELEVATED. SUCTION HOOKED UP, SUCTIONED. GOWN CHANGED. WILL CONTINUE TO MONITOR. ASPIRATION PRECAUIONS STARTED. CALL LIGHT IN REACH. JIGNA AND CO RN NOTIFIED
--- NOTE | 2023-07-16 21:47 | NUR ---
RESTING QUIETLY. HOB ELEVATED. CALL LIGHT IN REACH
--- NOTE | 2023-07-17 03:47 | NUR ---
SHIFT SUMMARY PT DEVELOPMENTALLY DELAYED. ANSWERS SIMPLE QUESTIONS, SLOW TO RESPOND WITH MUMBLED SPEECH. PT HAD A BOUT OF COUGHING SPITTING UP PHLEGM, SUCTION SET UP AT BEDSIDE. PT NPO EXCEPT FOR ORAL MEDS. COUGHED WHEN TAKING. HOB KEPT ELEVATED AND ASPIRATION PRECAUTIONS STARTED. PT HAD NEPHROSTOMY TUBES REPLACED TODAY. B;ATERAL NEPHROSTOMY TUBES IN PLACE: SANGUINOUS DRAINAGE IN L NEPHROSTOMY TUBE, DARK SEROSANGUINOUS DRAINAGE IN R NEPH TUBE. PT WEARING ABD BINDER TO DISCOURAHE HIM FROM PULLING ON THEM. UROSTOMY BAG WITH YELLOW URINE. PT DENIES ANY PAIN AT THIS TIME. PT IS WHEELCHAIR AT BASELINE AND HAD SARAHI EXT CONTRACTURES. WILL CONTINUE TO MONITOR. BED KEPT IN LOWEST POSITION WITH CALL LIGHT IN REACH.
[2023-07-17 04:23] VITALS: BP 117/80
[2023-07-17 04:48] LABS: BASOPHILS ABSOLUTE AUTO 0.12 K/mm3 (0.00-0.23); BASOPHILS PERCENT AUTO 0 % (0-2); EOSINOPHILS ABSOLUTE AUTO 0.01 K/mm3 (0.00-0.68); EOSINOPHILS PERCENT AUTO 0 % (0-6); Hematocrit 36.6 % (37.0-53.0); Hemoglobin 12.3 g/dL (13.5-17.5); IMMATURE GRAN ABSOLUTE AUTO 1.87 K/mm3 (0.00-0.10); IMMATURE GRAN PERCENT AUTO 5 % (0-1); LYMPHOCYTES ABSOLUTE AUTO 0.53 K/mm3 (0.84-5.20); LYMPHOCYTES PERCENT AUTO 1 % (21-46); MONOCYTES ABSOLUTE AUTO 2.06 K/mm3 (0.16-1.47); MONOCYTES PERCENT AUTO 5 % (4-13); Mean Corpuscular HGB 28.8 pg (26.0-34.0); Mean Corpuscular HGB Conc 33.6 g/dL (31.5-36.5); Mean Corpuscular Volume 86 fL (80-100); NEUTROPHILS ABSOLUTE AUTO 34.69 K/mm3 (1.96-9.15); NEUTROPHILS PERCENT AUTO 88 % (41-73); Platelet Count 349 K/mm3 (150-400); RDW Coefficient Variation 13.8 % (11.7-14.2); RDW Standard Deviation 42.4 fL (35.1-46.3); Red Blood Cell Count 4.27 M/mm3 (4.30-5.90); White Blood Cell Count 39.28 K/mm3 (4.00-11.30)
[2023-07-17 05:22] LABS: Calcium, Blood 9.2 mg/dL (8.5-10.1); Creatinine, Blood 1.59 mg/dL (0.60-1.20); Potassium, Blood 3.8 mmol/L (3.5-5.5)
[2023-07-17 07:13] VITALS: BP 130/79
[2023-07-17 16:11] VITALS: BP 125/90
--- NOTE | 2023-07-17 17:31 | NUR ---
SHIFT SUMMARY PLEASANT AND COOPERATIVE WITH CARES. ALERT AND ORIENTED TO SELF AND SITUATION. DENIES PAIN, C/P, SOB. PT IS TACHYCARDIC AND FEBRILE, ELEVATED WBC. MD IS AWARE. TREATED PER EMAR. PT IS UNABLE TO USE CALL LIGHT DUE TO CONTRACTURES. NO BM THIS SHIFT. DARK RED OUTPUT FROM R NEPH, BROWN OUTPUT FROM L NEPH.
[2023-07-17 19:28] VITALS: BP 116/70
[2023-07-18 03:53] VITALS: BP 129/84
--- NOTE | 2023-07-18 04:41 | NUR ---
SHIFT SUMMARY PT IS ALERT AND ORIENTED TO SELF AND SITUATION. PT IS PLEASANT AND COOPERATIVE WITH CARE. PT HAS ANSWERED WITH ONE WORD ANSWER-YES, NO, OKAY. PT UNABLE TO USE CALL LIGHT DUE TO CONTRACTURES, FREQUENT CHECKS DONE THIS SHIFT. DARK RED OUTPUT FROM RIGHT NEPH, BROWN/YELLOW OUTPUT FROM LEFT NEPH. PT RESTED OFF AND ON T/O SHIFT-RESPIRATIONS EQUAL AND UNLABORED. PT TEMPERATURE WAS 101.4 THIS MORNING AT 0401-SHEET ON, FAN, ROOM TEMPERATURE TURNED DOWN AND TYLENOL GIVEN AT 0438 TEMPERATURE DOWN TO 99.2. PT DENIES CHEST PAIN/PRESSURE/TIGHTNESS. PT ASSESSED FOR PAIN-PT DENIES PAIN. NO S/S OF DISTRESS NOTED AT THIS TIME. BED IS LOCKED IN THE LOWEST POSITION WITH CALL LIGHT IN REACH.
[2023-07-18 05:49] LABS: BASOPHILS ABSOLUTE AUTO 0.04 K/mm3 (0.00-0.23); BASOPHILS PERCENT AUTO 0 % (0-2); EOSINOPHILS ABSOLUTE AUTO 0.01 K/mm3 (0.00-0.68); EOSINOPHILS PERCENT AUTO 0 % (0-6); IMMATURE GRAN ABSOLUTE AUTO 0.22 K/mm3 (0.00-0.10); IMMATURE GRAN PERCENT AUTO 1 % (0-1); LYMPHOCYTES ABSOLUTE AUTO 1.01 K/mm3 (0.84-5.20); LYMPHOCYTES PERCENT AUTO 4 % (21-46); MONOCYTES ABSOLUTE AUTO 1.83 K/mm3 (0.16-1.47); MONOCYTES PERCENT AUTO 8 % (4-13); Mean Corpuscular HGB 28.9 pg (26.0-34.0); Mean Corpuscular HGB Conc 33.3 g/dL (31.5-36.5); Mean Corpuscular Volume 87 fL (80-100); Mean Platelet Volume 9.7 fL (9.1-12.4); NEUTROPHILS ABSOLUTE AUTO 20.07 K/mm3 (1.96-9.15); NEUTROPHILS PERCENT AUTO 87 % (41-73); Platelet Count 283 K/mm3 (150-400); RDW Coefficient Variation 14.2 % (11.7-14.2); RDW Standard Deviation 45.5 fL (35.1-46.3); White Blood Cell Count 23.18 K/mm3 (4.00-11.30)
[2023-07-18 06:40] LABS: Bun/Creatinine Ratio 14.7 (12.0-20.0); Calcium, Blood 8.5 mg/dL (8.5-10.1); Creatinine, Blood 1.5 mg/dL (0.60-1.20); Potassium, Blood 3.9 mmol/L (3.5-5.5)
[2023-07-18 07:21] VITALS: BP 117/73
[2023-07-18 15:02] VITALS: BP 132/70
--- NOTE | 2023-07-18 16:53 | NUR ---
SHIFT SUMMARY PT IS ALERT AND ORIENTED TO SELF AND SITUATION. HE IS ABLE TO EXPRESS NEEDS WHEN ASKED YES/ NO QUESTIONS. CALM AND COOPERATIVE WITH CARE. OUTPUT FROM RIGHT NEPH BAG IS HONEY COLORED WITH AROUND 550ML FOR THE SHIFT. OUTPUT FROM LEFT BAG HAS BEEN YELLOW WITH AROUN 450ML FOR THE SHIFT. PT IS ABLE TO REPOSITION HIMSELF, PROVIDED PILLOWS FOR SUPPORT AND COMFORT. NO BM THIS SHIFT. R/A. BEDREST. BED IS THE LOWEST POSITION WITH CALL LIGHT IN REACH, HOWEVER PT UNABLE TO USE DUE TO CONTRACTURES.
[2023-07-18 20:16] VITALS: BP 110/70
[2023-07-19 02:40] VITALS: BP 142/86
--- NOTE | 2023-07-19 04:11 | NUR ---
SHIFT SUMMARY PT IS ALERT TO SELF AND SITUATION. DEVELOPMENTALLY DELAYED. PT HAD AN EPISODE OF VOMITING. POSSIBLY DUE TO THE WAY HE DRINKS. DRINKS VERY QUICKLY AND HAD BEEN GIVEN MILK. NO OTHER EPISODES T/O THE SHIFT. RIGHT AND LEFT NEPHROSTOMY TUBES DRAINING DARK YELLOW URINE. UROSTOMY DRAINING RED. PT TOOK 2100 MEDS WHOLE WITH WATER. SUCTION SET UP AT BEDSIDE. PT USES WHEELCHAIR AT BASELINE AND HAS CONTRACTURES OF ALL 4 EXT. CAN REPOSITION SELF SOME AND ANSWERS YES/NO QUESTIONS. BED KEPT LOWEST POSITION WITH CALL LIGHT IN REACH. THIS NURSE STAYED CLOSE BY PT ROOM INCASE OF ANOTHER VOMITING EPISODE.
[2023-07-19 05:53] LABS: BASOPHILS ABSOLUTE AUTO 0.04 K/mm3 (0.00-0.23); BASOPHILS PERCENT AUTO 0 % (0-2); EOSINOPHILS ABSOLUTE AUTO 0.03 K/mm3 (0.00-0.68); EOSINOPHILS PERCENT AUTO 0 % (0-6); Hemoglobin 10.9 g/dL (13.5-17.5); IMMATURE GRAN PERCENT AUTO 1 % (0-1); LYMPHOCYTES ABSOLUTE AUTO 1.48 K/mm3 (0.84-5.20); LYMPHOCYTES PERCENT AUTO 7 % (21-46); MONOCYTES ABSOLUTE AUTO 1.66 K/mm3 (0.16-1.47); MONOCYTES PERCENT AUTO 8 % (4-13); Mean Corpuscular HGB 28.8 pg (26.0-34.0); Mean Corpuscular HGB Conc 34.1 g/dL (31.5-36.5); Mean Corpuscular Volume 84 fL (80-100); Mean Platelet Volume 9.5 fL (9.1-12.4); NEUTROPHILS ABSOLUTE AUTO 17.74 K/mm3 (1.96-9.15); NEUTROPHILS PERCENT AUTO 84 % (41-73); Platelet Count 288 K/mm3 (150-400); RDW Coefficient Variation 13.7 % (11.7-14.2); RDW Standard Deviation 42.5 fL (35.1-46.3); Red Blood Cell Count 3.79 M/mm3 (4.30-5.90); White Blood Cell Count 21.15 K/mm3 (4.00-11.30)
[2023-07-19 06:28] LABS: Bun/Creatinine Ratio 15.9 (12.0-20.0); Calcium, Blood 8.8 mg/dL (8.5-10.1); Creatinine, Blood 1.32 mg/dL (0.60-1.20); Potassium, Blood 3.6 mmol/L (3.5-5.5)
[2023-07-19 08:10] VITALS: BP 133/80
[2023-07-19 16:19] VITALS: BP 117/74
--- NOTE | 2023-07-19 17:52 | NUR ---
NO ACUTE CHANGES, PATIENT TO STAY THROUGH THE WEEKEND DUE TO AVAILABITLITY AT TED ABILIO ALEX FROM RESIDENT CHECKED ON PATIENT TODAY, TO BE DISCHARGED BACK ON SATURDAY. BC DONE AGAIN DUE TO COMING BACK POSITIVE. UROSTOMY AND NEPHROX2 DRAINING YELLOW URINE. POOR APPETITE AT LUNCH AND DINNER. PATIENT ABLE TO ANSWER YES AND NO, WILL RELAY TO PM RN
[2023-07-19 19:30] VITALS: BP 122/83
[2023-07-20 01:50] VITALS: BP 114/76
[2023-07-20 05:26] LABS: BASOPHILS ABSOLUTE AUTO 0.03 K/mm3 (0.00-0.23); BASOPHILS PERCENT AUTO 0 % (0-2); EOSINOPHILS ABSOLUTE AUTO 0.14 K/mm3 (0.00-0.68); EOSINOPHILS PERCENT AUTO 1 % (0-6); Hematocrit 31.3 % (37.0-53.0); Hemoglobin 10.7 g/dL (13.5-17.5); IMMATURE GRAN ABSOLUTE AUTO 0.09 K/mm3 (0.00-0.10); IMMATURE GRAN PERCENT AUTO 1 % (0-1); LYMPHOCYTES ABSOLUTE AUTO 1.62 K/mm3 (0.84-5.20); LYMPHOCYTES PERCENT AUTO 14 % (21-46); MONOCYTES ABSOLUTE AUTO 0.99 K/mm3 (0.16-1.47); MONOCYTES PERCENT AUTO 9 % (4-13); Mean Corpuscular HGB 28.8 pg (26.0-34.0); Mean Corpuscular HGB Conc 34.2 g/dL (31.5-36.5); Mean Corpuscular Volume 84 fL (80-100); Mean Platelet Volume 9.5 fL (9.1-12.4); NEUTROPHILS ABSOLUTE AUTO 8.62 K/mm3 (1.96-9.15); NEUTROPHILS PERCENT AUTO 75 % (41-73); Platelet Count 290 K/mm3 (150-400); RDW Coefficient Variation 13.8 % (11.7-14.2); RDW Standard Deviation 41.9 fL (35.1-46.3); Red Blood Cell Count 3.72 M/mm3 (4.30-5.90); White Blood Cell Count 11.49 K/mm3 (4.00-11.30)
[2023-07-20 06:13] LABS: Bun/Creatinine Ratio 16.9 (12.0-20.0); Calcium, Blood 8.8 mg/dL (8.5-10.1); Creatinine, Blood 1.36 mg/dL (0.60-1.20); Potassium, Blood 3.6 mmol/L (3.5-5.5)
[2023-07-20 08:00] VITALS: BP 120/74
[2023-07-20 10:29] LABS: Vancomycin, Random 13.4 ug/mL
[2023-07-20 16:20] VITALS: BP 115/72
--- NOTE | 2023-07-20 17:47 | NUR ---
NO ACUTE CHANGES, PATIENT IS CONTINUING TO REFUSE MEDICATIONS, BAGS IN PLACE, ABD BINDER, MAKES NEEDS KNOWN WITH YES AND NO, PLACEMENT BACK TO [facility] ON SATURDAY, REPOSITIONED AND ROUNDED EVERY TWO HOURS, CALL LIGHT WITH IN REACH
[2023-07-20 20:36] VITALS: BP 115/69
--- NOTE | 2023-07-21 00:17 | NUR ---
END OF SHIFT SUMMARY PT A&O x1, ABLE TO IDENTIFY SELF. PT UNDERSTANDS HE'S AT THE HOSPITAL. PT TOOK SCHEDULED MEDICATION CRUSHED IN VANILLA ENSURE AND STRAWBERRY ICE CREAM. NO DIFFICULTIES WITH SWALLOWING, NO ASPIRATION WITH DRINKING FLUIDS. IV ANTIBIOTICS RUNNING. PT RESISTANT TO CARE AT TIMES. PT DENIED ANY PAIN/DISCOMFORT WHEN ASKED. R&L NEPHROSTOMY BAGS AND UROSTOMY BAG DRAINING WELL, URINE IS STRAW YELLOW IN COLOR. CALL LIGHT WITHIN REACH, WCTM.
[2023-07-21 03:57] VITALS: BP 115/75
[2023-07-21 04:56] LABS: BASOPHILS ABSOLUTE AUTO 0.03 K/mm3 (0.00-0.23); BASOPHILS PERCENT AUTO 0 % (0-2); EOSINOPHILS ABSOLUTE AUTO 0.15 K/mm3 (0.00-0.68); EOSINOPHILS PERCENT AUTO 2 % (0-6); Hematocrit 30.3 % (37.0-53.0); Hemoglobin 10.1 g/dL (13.5-17.5); IMMATURE GRAN ABSOLUTE AUTO 0.09 K/mm3 (0.00-0.10); IMMATURE GRAN PERCENT AUTO 1 % (0-1); LYMPHOCYTES ABSOLUTE AUTO 2.13 K/mm3 (0.84-5.20); LYMPHOCYTES PERCENT AUTO 22 % (21-46); MONOCYTES ABSOLUTE AUTO 0.69 K/mm3 (0.16-1.47); MONOCYTES PERCENT AUTO 7 % (4-13); Mean Corpuscular HGB 28.3 pg (26.0-34.0); Mean Corpuscular HGB Conc 33.3 g/dL (31.5-36.5); Mean Corpuscular Volume 85 fL (80-100); Mean Platelet Volume 9.1 fL (9.1-12.4); NEUTROPHILS ABSOLUTE AUTO 6.56 K/mm3 (1.96-9.15); NEUTROPHILS PERCENT AUTO 68 % (41-73); Platelet Count 296 K/mm3 (150-400); RDW Coefficient Variation 13.7 % (11.7-14.2); RDW Standard Deviation 42.3 fL (35.1-46.3); Red Blood Cell Count 3.57 M/mm3 (4.30-5.90); White Blood Cell Count 9.65 K/mm3 (4.00-11.30)
[2023-07-21 05:49] LABS: Bun/Creatinine Ratio 18.2 (12.0-20.0); Calcium, Blood 8.8 mg/dL (8.5-10.1); Creatinine, Blood 1.37 mg/dL (0.60-1.20); Potassium, Blood 3.8 mmol/L (3.5-5.5)
[2023-07-21 07:33] VITALS: BP 135/83
[2023-07-21 10:42] LABS: Vancomycin, Trough 15.8 ug/mL (5.0-10.0)
[2023-07-21 15:57] VITALS: BP 142/85
--- NOTE | 2023-07-21 18:42 | NUR ---
SHIFT SUMMARY IS A&O X 1-2, VSS. IS AWARE HE'S IN THE HOSPITAL. IS DEVELOPMENTALLY DELAYED, IS PLEASANT & COOPERATIVE WITH ALL CARE. IS ABLE TO MAKE NEEDS KNOWN, HE WAS PARTICULARLY INTERESTED IN WATCHING FOOTBALL TODAY. NEPH TUBES DRAINING STRAW COLORED URINE, R SIDE DRAINED 700 MLS & L SIDE DRAINED 175 MLS. IV ANTIBIOTICS GIVEN PER EMAR. IS IN ISO FOR MDRO IN THE URINE. IS ABLE TO SWALLOW MEDS CRUSHED IN FOOD OF CHOICE, TODAY HE CHOSE [facility]. PLAN IS TO RETURN TO PREVIOUS LIVING SITUATION WHEN READY FOR DC. BED IN LOW POSITION, CALL LIGHT ADAPTED FOR EASE OF USE FOR PT WITHIN REACH.
[2023-07-21 20:16] VITALS: BP 117/83
[2023-07-22 02:20] VITALS: BP 121/81
[2023-07-22 04:55] LABS: BASOPHILS ABSOLUTE AUTO 0.06 K/mm3 (0.00-0.23); BASOPHILS PERCENT AUTO 1 % (0-2); EOSINOPHILS ABSOLUTE AUTO 0.18 K/mm3 (0.00-0.68); EOSINOPHILS PERCENT AUTO 2 % (0-6); Hematocrit 31.1 % (37.0-53.0); Hemoglobin 10.2 g/dL (13.5-17.5); IMMATURE GRAN ABSOLUTE AUTO 0.16 K/mm3 (0.00-0.10); IMMATURE GRAN PERCENT AUTO 2 % (0-1); LYMPHOCYTES ABSOLUTE AUTO 2.24 K/mm3 (0.84-5.20); LYMPHOCYTES PERCENT AUTO 23 % (21-46); MONOCYTES ABSOLUTE AUTO 0.85 K/mm3 (0.16-1.47); MONOCYTES PERCENT AUTO 9 % (4-13); Mean Corpuscular HGB 28.3 pg (26.0-34.0); Mean Corpuscular HGB Conc 32.8 g/dL (31.5-36.5); Mean Corpuscular Volume 86 fL (80-100); Mean Platelet Volume 9.3 fL (9.1-12.4); NEUTROPHILS ABSOLUTE AUTO 6.09 K/mm3 (1.96-9.15); NEUTROPHILS PERCENT AUTO 64 % (41-73); Platelet Count 357 K/mm3 (150-400); RDW Coefficient Variation 13.6 % (11.7-14.2); RDW Standard Deviation 43.1 fL (35.1-46.3); Red Blood Cell Count 3.61 M/mm3 (4.30-5.90); White Blood Cell Count 9.58 K/mm3 (4.00-11.30)
[2023-07-22 05:17] LABS: Bun/Creatinine Ratio 16.4 (12.0-20.0); Calcium, Blood 8.7 mg/dL (8.5-10.1); Creatinine, Blood 1.46 mg/dL (0.60-1.20); Potassium, Blood 3.7 mmol/L (3.5-5.5)
--- NOTE | 2023-07-22 06:46 | NUR ---
SHIFT SUMMARY PT LAYING IN BED DURING BEDSIDE REPORT- PT REFUSED TO TAKE HS MEDS AT FIRST TRY- ATTEMPTED 15 MINUTES LATER AND PT TOOK WITHOUT PROBLEMS, BILAT NEPHROSTOMY TUBES DRAINING CLEAR YELLOW URINE, RIGHT SIDE PUTTING OUT MORE OUTPUT, RIGHT SIDED OSTOMY PUTTING OUT YELLOW URINE WITH MODERATE AMOUNT OF SEDIMENT- PT CHANGED Q2H AND REPOSITIONED, PT TOLERATED WELL, BED LOW POSITION, CALL LIGHT WITHIN REACH, CONTACT PRECAUTIONS IN PLACE
[2023-07-22 07:39] VITALS: BP 119/83
--- NOTE | 2023-07-22 14:20 | NUR ---
SHIFT SUMMARY PT AWAKE DURING SHIFT REPORT THIS AM. PT IS DEVELOPMENTALLY DELAYED, LIVING AT [facility]. PT TO D/C TO REHAB FOR MORE 2 WEEKS IV ABX. PT ADMITTED FOR PULLING ONE OF HIS NEPHROSTOMY TUBES. PT ALSO HAS A UROSTOMY IN RLQ; ALL DRAINING CL YELLOW URINE NOW. MEDS TAKEN CRUSHED IN PUDDING D/T PT BEING MORE AGREEABLE TO TAKING THEM. CONTRACTURES TO BUE'S, NEEDING FEEDING ASSISTANCE. NO C/O PAIN. NO S/SX OF DISTRESS NOTED OR REPORTED. LIKES TO WATCH FOOTBALL. BED ALARM ON FOR SAFETY. CALL LT IN REACH.
[2023-07-22 15:27] VITALS: BP 126/75
[2023-07-22 19:20] VITALS: BP 120/76
[2023-07-23 03:50] VITALS: BP 118/78
--- NOTE | 2023-07-23 04:07 | NUR ---
SHIFT SUMMARY PATIENT A/Ox2-3, PLEASANT AFFECT, DEVELOPMENTALLY DELAYED. SITTING UP IN BED WATCHING TV. DENIES PAIN NOR DISCOMFORT. RLQ UROSTOMY AND RIGHT/LEFT NEPHROSTOMIES DRAINING CLEAR YELLOW URINE. BED ALARM ON FOR PATIENT SAFETY. NO ACUTE CHANGES NOTED OVERNIGHT. BED LOCKED AND IN LOWEST POSITION, CALL LIGHT WITHIN REACH.
[2023-07-23 07:21] VITALS: BP 123/74
--- NOTE | 2023-07-23 15:50 | NUR ---
SHIFT SUMMARY PATIENT PLEASANT AND COOPERATIVE WITH CARE. NO ACUTE EVENTS DURING SHIFT. BED ALARM ON, CALL LIGHT IN REACH. PATIENT DOES NOT CALL. HOURLY ROUNDING WITH PATIENT. HE DENIES ANY PAIN THROUGHOUT SHIFT.
[2023-07-23 16:01] VITALS: BP 112/75
[2023-07-23 19:15] VITALS: BP 129/78
[2023-07-24 04:16] VITALS: BP 131/77
--- NOTE | 2023-07-24 06:49 | NUR ---
SHIFT SUMMARY; NO ACUTE CHANGES OVERNIGHT. THE PT IS AXO X1, DEVELOPMENTALLY DELAYED. THE PT IS BEDBOUND AT BASELINE. T/O THE NIGHT THE PT HAS BEEN PLEASANT AND COOPERATIVE W/ CARE. THE PT HAS BILATERAL NEPHROSTOMY TUBES AND A R SIDED UROSTOMY. ALL TUBES ARE PATENT AND DRAINING YELLOW URINE. THE PT DENIES ANY PAIN. VSS. RESPIRATIONS ARE EVEN AND UNLABORED. CURRENTLY THE PT IS SLEEPING IN BED WITH THE BED IN THE LOWEST POSITION AND THE CALL LIGHT AT BEDSIDE. FIRE SAFETY CHECKS COMPLETED.
[2023-07-24 07:04] VITALS: BP 121/76
[2023-07-24 16:03] VITALS: BP 120/72
--- NOTE | 2023-07-24 18:56 | NUR ---
SHIFT SUMMARY PATIENT WITH NO ACUTE EVENTS DURING SHIFT. HE IS PLEASANT AND COOPERATIVE WITH CARE TODAY. BED IN LOW POSITION. HOURLY ROUNDING PERFORMED. PATIENT DOES NOT USE CALL LIGHT DUE TO DEVELOPMENTAL DELAY.
[2023-07-24 20:17] VITALS: BP 124/70
[2023-07-25 05:16] VITALS: BP 118/72
--- NOTE | 2023-07-25 07:29 | NUR ---
END OF SHIFT SUMMARY PT A&O x1-2, VSS, AFEBRILE. PT CALM AND COOPERATIVE WITH CARE. PT COMPLIANT WITH MEDICATION ADMINISTRATION. PT ASSISTS WITH REPOSITIONING IN BED. R AND L NEPHROSTOMY BAGS DRAINING WELL, URINE STRAW YELLOW IN COLOR. DRAINING WELL, URINE STRAW YELLOW IN COLOR. PT DEVELOPMENTALLY DELAYED, DIFFICULT TO UNDERSTAND AT TIMES. CALL LIGHT WITHIN REACH, FREQUENT SAFETY CHECKS COMPLETED THROUGHOUT THE SHIFT, WCTM.
[2023-07-25 07:40] VITALS: BP 109/68
[2023-07-25 09:57] LABS: SARS-Cov-2 (COVID-19) PCR, MMC NEGATIVE (NEGATIVE)
[2023-07-25] MEDS ORDERED: VISBIOME 112.51 EACH PO (11:09)
[2023-07-25] MEDS ORDERED: [UNRECOGNIZED DRUG - OTHER] IV (11:12)
[2023-07-25 14:46] VITALS: BP 114/73
--- NOTE | 2023-07-25 15:24 | NUR ---
SHIFT/DISCHARGE SUMMARY Pt remains A&O X1-2. Denies pain. VSS. Resp even nonlabored on RA. Ludin nephrostomy tubes CDI with yellow output. Urostomy CDI. Pt able to get up oob with ast to wheelchair to transport to [facility] for termite treater helper IV antibx. Report called to Jace. Pt with all belongings.
== END 2023-07-25 15:35 | DRG 699 ==
LOC: ER 09:36 → MEDS 09:37 → ER 14:50 → MEDS 17:18 → ENPENDDIS 07-25 11:18 → MEDS 07-25 15:35
PROVIDERS: Emergency Medicine; Internal Medicine; Radiology Diagnostic Radiology; ADMIT Internal Medicine
PROC: 0T9030Z Drainage of Right Kidney with Drainage Device, Percutaneous Approach (ICD-10-PCS; principal; 2023-07-16)
PROC: BT41ZZZ Ultrasonography of Right Kidney (ICD-10-PCS; 2023-07-16)
PROC: BT111ZZ Fluoroscopy of Right Kidney using Low Osmolar Contrast (ICD-10-PCS; 2023-07-16)
PROC: 0T25X0Z Change Drainage Device in Kidney, External Approach (ICD-10-PCS; 2023-07-16)
PROC: BT161ZZ Fluoroscopy of Right Ureter using Low Osmolar Contrast (ICD-10-PCS; 2023-07-16)
PROC: BT171ZZ Fluoroscopy of Left Ureter using Low Osmolar Contrast (ICD-10-PCS; 2023-07-16)
DX: N99.522 Malfunction of incontinent external stoma of urinary tract (principal); E87.1 Hypo-osmolality and hyponatremia; G11.9 Hereditary ataxia, unspecified; N12 Tubulo-interstitial nephritis, not specified as acute or chronic; R78.81 Bacteremia; N13.30 Unspecified hydronephrosis; B95.62 Methicillin resistant Staphylococcus aureus infection as the cause of diseases classified elsewhere; B96.20 Unspecified Escherichia coli [E. coli] as the cause of diseases classified elsewhere; R62.50 Unspecified lack of expected normal physiological development in childhood; E86.0 Dehydration; N18.30 Chronic kidney disease, stage 3 unspecified; N40.0 Benign prostatic hyperplasia without lower urinary tract symptoms; F32.A Depression, unspecified; I12.9 Hypertensive chronic kidney disease with stage 1 through stage 4 chronic kidney disease, or unspecified chronic kidney disease; K21.9 Gastro-esophageal reflux disease without esophagitis; Y83.8 Other surgical procedures as the cause of abnormal reaction of the patient, or of later complication, without mention of misadventure at the time of the procedure; Z90.6 Acquired absence of other parts of urinary tract; Z98.890 Other specified postprocedural states; Z11.52 Encounter for screening for COVID-19; Z88.1 Allergy status to other antibiotic agents; Z88.0 Allergy status to penicillin; Z88.8 Allergy status to other drugs, medicaments and biological substances; Z79.899 Other long term (current) drug therapy; Z79.51 Long term (current) use of inhaled steroids; Z74.01 Bed confinement status
CPT/HCPCS: 36415; 50432; 50435; 71046; 74176; 76937; 80048; 80053; 80202; 81001; 85025; 85651; 86140; 87040; 87077; 87086; 87147; 87186; 93306; 94760; 96365; 96372; 96376; 99152; 99153; 99284-25; A9270; C1729; C1751; C1769; C1887; C1894; G0378; J0696; J0744; J0878; J1650; J2250; J3010; J3370; J7040; J7050; Q9967; U0002

== ENCOUNTER 2023-08-13 09:44 | Observation (INO) | payer OTHER ==
[~2023-08-13] VITALS: Ht 152.4 cm; Wt 59.0 kg
[~2023-08-13 09:44] MED LIST changes: +ABC COMPLETE W1 EACH PO; +VISBIOME 112.51 EACH PO; +[UNRECOGNIZED DRUG - OTHER] IV
[2023-08-13 11:07] LABS: BASOPHILS ABSOLUTE AUTO 0.02 K/mm3 (0.00-0.23); BASOPHILS PERCENT AUTO 0 % (0-2); EOSINOPHILS ABSOLUTE AUTO 0.16 K/mm3 (0.00-0.68); EOSINOPHILS PERCENT AUTO 1 % (0-6); Hematocrit 33.2 % (37.0-53.0); Hemoglobin 11.2 g/dL (13.5-17.5); IMMATURE GRAN ABSOLUTE AUTO 0.06 K/mm3 (0.00-0.10); IMMATURE GRAN PERCENT AUTO 1 % (0-1); LYMPHOCYTES ABSOLUTE AUTO 2.12 K/mm3 (0.84-5.20); LYMPHOCYTES PERCENT AUTO 17 % (21-46); MONOCYTES ABSOLUTE AUTO 1.37 K/mm3 (0.16-1.47); MONOCYTES PERCENT AUTO 11 % (4-13); Mean Corpuscular HGB 28.4 pg (26.0-34.0); Mean Corpuscular HGB Conc 33.7 g/dL (31.5-36.5); Mean Corpuscular Volume 84 fL (80-100); Mean Platelet Volume 9.2 fL (9.1-12.4); NEUTROPHILS ABSOLUTE AUTO 8.71 K/mm3 (1.96-9.15); NEUTROPHILS PERCENT AUTO 70 % (41-73); Platelet Count 296 K/mm3 (150-400); RDW Coefficient Variation 14.6 % (11.7-14.2); RDW Standard Deviation 44.8 fL (35.1-46.3); Red Blood Cell Count 3.94 M/mm3 (4.30-5.90); White Blood Cell Count 12.44 K/mm3 (4.00-11.30)
[2023-08-13 11:25] LABS: Albumin, Blood 2.6 g/dL (3.4-5.0); Albumin/Globulin Ratio 0.5 (0.8-1.8); Bilirubin, Total 0.6 mg/dL (0.1-1.0); Calcium, Blood 8.7 mg/dL (8.5-10.1); Creatinine, Blood 1.47 mg/dL (0.60-1.20); Globulin, Blood 5.4 g/dL (2.2-4.0); Potassium, Blood 4.1 mmol/L (3.5-5.5)
[2023-08-13] MEDS ORDERED: DOCU100 PO (12:28)
[2023-08-13 14:16] LABS: Source, Urine Nephrostomy
[2023-08-13 14:20] LABS: Appearance, Urine Cloudy (Clear); Bilirubin, Urine Neg (Neg); Blood, Urine 4+ (Neg); Color, Urine Yellow (P-Yellow); Glucose Qualitative, Urine Neg (Neg); Ketones, Urine 2+ (Neg); Leukocyte Esterase, Urine 3+ (Neg); Nitrite, Urine Neg (Neg); Protein, Urine 3+ (Neg); Urobilinogen, Urine NORM (Normal)
[2023-08-13 14:30] LABS: White Blood Cells, Urine TNTC /hpf (0-5)
[2023-08-13 14:32] LABS: Bacteria Many /hpf; Granular Casts 0-2 /lpf (0); Hyaline Casts 0-2 /lpf (0-2); Mucus Light (0-Heavy); Red Blood Cells, Urine TNTC /hpf (0-2); Squamous Epithelial Cells Few /hpf (Few)
[2023-08-13] MEDS ORDERED: OMEP20ER PO (17:59)
[2023-08-13 18:12] VITALS: BP 124/76
[2023-08-13 21:23] VITALS: BP 109/77
[2023-08-14 01:59] VITALS: BP 122/76
--- NOTE | 2023-08-14 04:56 | NUR ---
SUMMARY: PT A/OX3 AND PLEASANT AND COOPERATIVE W/CARE. HE'S DEVELOPMENTALLY DELAYED BUT ANSWERS Q'S APPROPRIATELY AND IS ABLE TO SPECIFY NEEDS. BILAT NEPHROSTOMIES AND UROSTOMY W/DRAINAGE BAGS REMAIN PATENT AND INTACT. YELLOW URINE W/SMALL AMT OF SEDIMENT EMPTIED. IV ABX FOR UTI RECIEVED AND LR INFUSES AT 125 ML/HR. HE'S W/C BOUND AT BASELINE AND IS ABLE TO TAKE STEPS FOR T/F'S BUT REMAINED IN BED SO WAS ASSISTED W/REPOSITIONING FOR SBD PREVENTION. NEW IV WAS PLACED D/T PREVIOUS LEAKIND. NO ACUTE CHANGES, VSS/AFEBRILE. WCTM AND REPORT TO DAY RN.
[2023-08-14 07:20] LABS: BASOPHILS ABSOLUTE AUTO 0.05 K/mm3 (0.00-0.23); BASOPHILS PERCENT AUTO 1 % (0-2); EOSINOPHILS ABSOLUTE AUTO 0.16 K/mm3 (0.00-0.68); EOSINOPHILS PERCENT AUTO 2 % (0-6); Hematocrit 31.2 % (37.0-53.0); Hemoglobin 10.4 g/dL (13.5-17.5); IMMATURE GRAN ABSOLUTE AUTO 0.05 K/mm3 (0.00-0.10); IMMATURE GRAN PERCENT AUTO 1 % (0-1); LYMPHOCYTES ABSOLUTE AUTO 1.67 K/mm3 (0.84-5.20); LYMPHOCYTES PERCENT AUTO 19 % (21-46); MONOCYTES ABSOLUTE AUTO 0.85 K/mm3 (0.16-1.47); MONOCYTES PERCENT AUTO 10 % (4-13); Mean Corpuscular HGB 28.5 pg (26.0-34.0); Mean Corpuscular HGB Conc 33.3 g/dL (31.5-36.5); Mean Corpuscular Volume 86 fL (80-100); Mean Platelet Volume 9.3 fL (9.1-12.4); NEUTROPHILS ABSOLUTE AUTO 6.14 K/mm3 (1.96-9.15); NEUTROPHILS PERCENT AUTO 69 % (41-73); Platelet Count 263 K/mm3 (150-400); RDW Coefficient Variation 14.1 % (11.7-14.2); RDW Standard Deviation 44.3 fL (35.1-46.3); Red Blood Cell Count 3.65 M/mm3 (4.30-5.90); White Blood Cell Count 8.92 K/mm3 (4.00-11.30)
[2023-08-14 07:37] LABS: Albumin, Blood 2.4 g/dL (3.4-5.0); Albumin/Globulin Ratio 0.5 (0.8-1.8); Bilirubin, Total 0.3 mg/dL (0.1-1.0); Bun/Creatinine Ratio 14.4 (12.0-20.0); Calcium, Blood 8.7 mg/dL (8.5-10.1); Creatinine, Blood 1.25 mg/dL (0.60-1.20); Globulin, Blood 4.8 g/dL (2.2-4.0); Potassium, Blood 3.7 mmol/L (3.5-5.5); Total Protein, Blood 7.2 g/dL (6.4-8.2)
[2023-08-14 07:49] VITALS: BP 127/101
[2023-08-14] MEDS ORDERED: CIPR500 PO (15:19)
[2023-08-14 19:06] VITALS: BP 122/76
--- NOTE | 2023-08-14 19:29 | NUR ---
NOTIFIED SADI AT THE CARE FACILITY PT WAS TO BE DISCHARGED TO. INFORMED THE FLATTENING PRESS OPERATOR THAT PT WOULD NOT BE DISCHARGING HOME TONIGHT. ONE OF THE NEPHROSTOMY TUBES HAD BEEN PULLED. WILL BE SEEN TOMORROW BY INTERVENTIONAL RADIOLOGY FOR PLACEMENT OF THE PULLED NEPHROSTOMY TUBE.
[2023-08-15 02:26] VITALS: BP 128/81
--- NOTE | 2023-08-15 05:06 | NUR ---
SHIFT SUMMARY PATIENT IS A&OX3. PLEASANT AND COOPERATIVE WITH CARE. NEW IV PLACED BY VINNY WOODS IN RIGHT AC. PER REPORT FROM DAY SHIFT RN IV PULLED FOR DISCHARGE, UPON TRANSFER TO WHEELCHAIR FOR DISCHARGE IT WAS NOTED THAT LEFT NEPHROSTOMY HAD BEEN PULLED-PATIENT NOT DISCHARGED AND IS INPATIENT FOR CONSULT WITH INTERVENTIONAL RADIOLOGY FOR REPLACEMENT OF LEFT NEPHROSTOMY. CONSULT CALLED TO OFFICE FOR 08/15/2023 AT 0800 PER ANSWERING SERVICE. RIGHT NEPHROSTOMY AND UROSTOMY IN PLACE, PATENT AND DRAINING. BED IS LOCKED IN LOWEST POSITION WITH CALL LIGHT IN REACH. PATIENT ABLE TO ASSIST WITH REPOSITIONING.
[2023-08-15 05:25] LABS: BASOPHILS ABSOLUTE AUTO 0.04 K/mm3 (0.00-0.23); BASOPHILS PERCENT AUTO 1 % (0-2); EOSINOPHILS ABSOLUTE AUTO 0.17 K/mm3 (0.00-0.68); EOSINOPHILS PERCENT AUTO 2 % (0-6); Hematocrit 30.3 % (37.0-53.0); Hemoglobin 10.1 g/dL (13.5-17.5); IMMATURE GRAN ABSOLUTE AUTO 0.05 K/mm3 (0.00-0.10); IMMATURE GRAN PERCENT AUTO 1 % (0-1); LYMPHOCYTES ABSOLUTE AUTO 2.14 K/mm3 (0.84-5.20); LYMPHOCYTES PERCENT AUTO 27 % (21-46); MONOCYTES ABSOLUTE AUTO 0.72 K/mm3 (0.16-1.47); MONOCYTES PERCENT AUTO 9 % (4-13); Mean Corpuscular HGB Conc 33.3 g/dL (31.5-36.5); Mean Corpuscular Volume 84 fL (80-100); Mean Platelet Volume 9.6 fL (9.1-12.4); NEUTROPHILS ABSOLUTE AUTO 4.74 K/mm3 (1.96-9.15); NEUTROPHILS PERCENT AUTO 60 % (41-73); Platelet Count 289 K/mm3 (150-400); RDW Coefficient Variation 13.8 % (11.7-14.2); RDW Standard Deviation 42.4 fL (35.1-46.3); Red Blood Cell Count 3.61 M/mm3 (4.30-5.90); White Blood Cell Count 7.86 K/mm3 (4.00-11.30)
[2023-08-15 05:50] LABS: Albumin, Blood 2.2 g/dL (3.4-5.0); Albumin/Globulin Ratio 0.5 (0.8-1.8); Bilirubin, Total 0.2 mg/dL (0.1-1.0); Bun/Creatinine Ratio 13.7 (12.0-20.0); Calcium, Blood 8.2 mg/dL (8.5-10.1); Creatinine, Blood 1.17 mg/dL (0.60-1.20); Globulin, Blood 4.7 g/dL (2.2-4.0); Potassium, Blood 3.5 mmol/L (3.5-5.5); Total Protein, Blood 6.9 g/dL (6.4-8.2)
[2023-08-15 07:09] VITALS: BP 122/80
--- NOTE | 2023-08-15 10:34 | NUR ---
DR MORE ROUNDED ON PATIENT, PATIENT TO HAVE NEPHROSTOMY REPLACED, PATIENT AGREED TO PROCEDURE, CAREGIVERS NOTIFIED, WITNESSED PATIENT SIGN
--- NOTE | 2023-08-15 12:43 | NUR ---
REPORTED TO ABILIO AT FACILITY, PATIENT TO HAVE NEPHROSTOMY REPLACED AND THEN DISCHARGED HOME, TRANSPORTERS HERE NOW TO TAKE FOR THE PROCEDURE, PATIENT AT BASELINE
[2023-08-15 13:53] VITALS: BP 130/80
[2023-08-15 14:33] VITALS: BP 126/89
--- NOTE | 2023-08-15 15:47 | NUR ---
1521 DISCHARGED TO FACILITY, REPORTED TO CAREGIVER AT [place], NO NEW CHANGES FROM YESTERDAY, PATIENT HAD NEPHROSTOMY PLACED, PATIENT AT BASELINE
== END 2023-08-15 15:22 | disposition home health service (06) ==
LOC: ER 09:44 → MEDS 09:45 → ENPENDDIS 08-14 18:49 → MEDS 08-15 15:22
PROVIDERS: Physician Assistant; Student in an Organized Health Care Education/Training Program; ADMIT Internal Medicine
DX: T83.511A Infection and inflammatory reaction due to indwelling urethral catheter, initial encounter (principal); Y73.8 Miscellaneous gastroenterology and urology devices associated with adverse incidents, not elsewhere classified; N17.9 Acute kidney failure, unspecified; E87.1 Hypo-osmolality and hyponatremia; K59.09 Other constipation; F32.A Depression, unspecified; I10 Essential (primary) hypertension; K21.9 Gastro-esophageal reflux disease without esophagitis; Z88.1 Allergy status to other antibiotic agents; Z88.8 Allergy status to other drugs, medicaments and biological substances; Z79.899 Other long term (current) drug therapy
CPT/HCPCS: 36415; 50432; 74177; 76937; 80053; 81001; 83605; 85025; 87040; 87077; 87086; 87186; 94760; 96365-59; 96366; 96367; 96376; 99152; 99284-25; A9270; C1729; C1769; C1887; C1894; G0378; J0744; J2250; J3010; J3370; J7030; J7050; J7120; Q9967

== ENCOUNTER 2023-11-21 15:12 | Emergency (ER) | payer OTHER ==
[~2023-11-21] VITALS: Ht 162.6 cm; Wt 54.4 kg
[~2023-11-21 15:12] MED LIST changes: +OMEP20ER PO
[2023-11-21 16:13] LABS: BASOPHILS ABSOLUTE AUTO 0.04 K/mm3 (0.00-0.23); BASOPHILS PERCENT AUTO 0 % (0-2); EOSINOPHILS PERCENT AUTO 0 % (0-6); Hematocrit 39.8 % (37.0-53.0); Hemoglobin 13.5 g/dL (13.5-17.5); IMMATURE GRAN ABSOLUTE AUTO 0.14 K/mm3 (0.00-0.10); IMMATURE GRAN PERCENT AUTO 1 % (0-1); LYMPHOCYTES ABSOLUTE AUTO 0.98 K/mm3 (0.84-5.20); LYMPHOCYTES PERCENT AUTO 5 % (21-46); MONOCYTES ABSOLUTE AUTO 1.58 K/mm3 (0.16-1.47); MONOCYTES PERCENT AUTO 8 % (4-13); Mean Corpuscular HGB 28.7 pg (26.0-34.0); Mean Corpuscular HGB Conc 33.9 g/dL (31.5-36.5); Mean Corpuscular Volume 85 fL (80-100); Mean Platelet Volume 9.2 fL (9.1-12.4); NEUTROPHILS ABSOLUTE AUTO 17.26 K/mm3 (1.96-9.15); NEUTROPHILS PERCENT AUTO 86 % (41-73); Platelet Count 293 K/mm3 (150-400); RDW Coefficient Variation 14.1 % (11.7-14.2); RDW Standard Deviation 43.7 fL (35.1-46.3)
[2023-11-21 16:25] LABS: Influenza A, PCR NEGATIVE (NEGATIVE); Influenza B, PCR NEGATIVE (NEGATIVE); Resp Syncytial Virus, PCR NEGATIVE (NEGATIVE); SARS-Cov-2 (COVID-19) PCR, MMC NEGATIVE (NEGATIVE)
[2023-11-21 16:54] LABS: Albumin, Blood 3.1 g/dL (3.4-5.0); Albumin/Globulin Ratio 0.6 (0.8-1.8); Bilirubin, Total 1.2 mg/dL (0.1-1.0); Bun/Creatinine Ratio 16.1 (12.0-20.0); Calcium, Blood 9.1 mg/dL (8.5-10.1); Creatinine, Blood 2.61 mg/dL (0.60-1.20); Globulin, Blood 5.4 g/dL (2.2-4.0); Potassium, Blood 3.8 mmol/L (3.5-5.5); Total Protein, Blood 8.5 g/dL (6.4-8.2)
[2023-11-21] MEDS ORDERED: NS 1,000 ML IV SCH (19:30)
[2023-11-21] MEDS ORDERED: Acetaminophen 500 MG Tab PO ONE (19:30)
[2023-11-21] MEDS ORDERED: LevoFLOXacin 750 MG/D5W 150ML 150 ML IV ONE (19:30)
[2023-11-21 19:48] LABS: Magnesium, Blood 1.9 mg/dL (1.6-2.4)
[2023-11-21 20:14] LABS: Source, Urine Urostomy Bag
[2023-11-21 20:26] LABS: Appearance, Urine Hazy (Clear); Bilirubin, Urine Neg (Neg); Blood, Urine 4+ (Neg); Color, Urine Yellow (P-Yellow); Glucose Qualitative, Urine Neg (Neg); Ketones, Urine Neg (Neg); Leukocyte Esterase, Urine 3+ (Neg); Nitrite, Urine Neg (Neg); Protein, Urine 2+ (Neg); Urobilinogen, Urine NORM (Normal)
[2023-11-21 20:32] LABS: White Blood Cells, Urine 50-100 /hpf (0-5)
[2023-11-21 20:33] LABS: Bacteria Mod /hpf; Squamous Epithelial Cells Rare /hpf (Few)
[2023-11-21] MEDS ORDERED: Lactated Ringer's 1,000 ML IV SCH (23:15)
[2023-11-21] MEDS ORDERED: Florastor250 MG PO (23:17)
[2023-11-21] MEDS ORDERED: ATIVAN0.5 MG PO (23:18)
[2023-11-22 00:15] VITALS: BP 123/76
[2023-11-22] MEDS ORDERED: LORazepam 2 MG/ML 1ML Injection IV ONE (00:15)
== END 2023-11-22 00:32 | disposition short-term general hospital (02) ==
LOC: ER 15:12
PROVIDERS: Physician Assistant
DX: A41.9 Sepsis, unspecified organism (principal); N12 Tubulo-interstitial nephritis, not specified as acute or chronic; R65.20 Severe sepsis without septic shock; N17.9 Acute kidney failure, unspecified; N99.522 Malfunction of incontinent external stoma of urinary tract; E86.0 Dehydration; Z88.8 Allergy status to other drugs, medicaments and biological substances; Z88.0 Allergy status to penicillin; Z88.1 Allergy status to other antibiotic agents; Z79.899 Other long term (current) drug therapy; I10 Essential (primary) hypertension; K21.9 Gastro-esophageal reflux disease without esophagitis
CPT/HCPCS: 0241U; 36415; 74176; 80053; 81001; 83605; 83690; 83735; 85025; 87077; 87086; 87186; 96361; 96365; 96366; 96375; 99284-25; A9270; J1956; J2060; J7030; J7120

== ENCOUNTER 2024-01-09 15:08 | Inpatient (IN) | payer OTHER ==
[~2024-01-09] VITALS: Ht 170.2 cm; Wt 58.7 kg
[~2024-01-09 15:08] MED LIST changes: +ATIVAN0.5 MG PO; +Florastor250 MG PO
[2024-01-09] MEDS ORDERED: NS 1,000 ML IV SCH ×2 (15:25→17:30)
[2024-01-09 15:49] LABS: Hematocrit 35.4 % (37.0-53.0); Hemoglobin 12.5 g/dL (13.5-17.5); Mean Corpuscular HGB 29.3 pg (26.0-34.0); Mean Corpuscular HGB Conc 35.3 g/dL (31.5-36.5); Mean Corpuscular Volume 83 fL (80-100); Platelet Count 220 K/mm3 (150-400); RDW Standard Deviation 45.2 fL (35.1-46.3); Red Blood Cell Count 4.26 M/mm3 (4.30-5.90); White Blood Cell Count 23.76 K/mm3 (4.00-11.30)
[2024-01-09 16:13] LABS: BAND PERCENT MAN 13 % (0-8); BASOPHILS PERCENT MAN 0 % (0-2); EOSINOPHILS PERCENT MAN 0 % (0-6); LYMPHOCYTES ABSOLUTE MAN 0.71 K/mm3 (0.84-5.20); LYMPHOCYTES PERCENT MAN 3 % (21-46); MONOCYTES PERCENT MAN 8 % (4-13); NEUTROPHILS ABSOLUTE MAN 21.14 K/mm3 (1.96-9.15); SEG NEUTROPHILS PERCENT MAN 76 % (41-73); TOTAL CELLS COUNTED 100
[2024-01-09 16:24] LABS: Albumin, Blood 2.9 g/dL (3.4-5.0); Albumin/Globulin Ratio 0.6 (0.8-1.8); Bilirubin, Total 0.7 mg/dL (0.1-1.0); Bun/Creatinine Ratio 14.1 (12.0-20.0); Calcium, Blood 8.9 mg/dL (8.5-10.1); Creatinine, Blood 1.77 mg/dL (0.60-1.20); Globulin, Blood 4.6 g/dL (2.2-4.0); Potassium, Blood 3.3 mmol/L (3.5-5.5); Total Protein, Blood 7.5 g/dL (6.4-8.2)
[2024-01-09] MEDS ORDERED: CefTRIAXone Sodium 1,000 MG in NS 100 ML IV ONE (16:25)
[2024-01-09] MEDS ORDERED: Ondansetron HCl 2 MG / ML 2ML Vial IV PRN (17:15)
[2024-01-09] MEDS ORDERED: Acetaminophen 325 MG TABLET PO PRN (17:15)
[2024-01-09 17:44] LABS: Source, Urine Nephrostomy
[2024-01-09 17:50] LABS: Appearance, Urine Hazy (Clear); Bilirubin, Urine Neg (Neg); Blood, Urine 5+ (Neg); Glucose Qualitative, Urine Neg (Neg); Ketones, Urine 1+ (Neg); Leukocyte Esterase, Urine 3+ (Neg); Nitrite, Urine Pos (Neg); Protein, Urine 2+ (Neg); Urobilinogen, Urine NORM (Normal); pH, Urine 6.5 (5.0-8.0)
[2024-01-09 17:59] LABS: Color, Urine Pale Yellow (P-Yellow)
[2024-01-09 18:00] LABS: White Blood Cells, Urine 25-50 /hpf (0-5)
[2024-01-09] MEDS ORDERED: Potassium Chloride 40 MEQ in NS 250 ML IV SCH (18:00)
[2024-01-09 18:01] LABS: Bacteria Mod /hpf; Squamous Epithelial Cells Rare /hpf (Few)
[2024-01-09 19:13] VITALS: BP 129/82
[2024-01-09] MEDS ORDERED: CARB10OTL BOTHEARS (20:31)
[2024-01-09] MEDS ORDERED: C COMPLEX1000 M1 PO (20:32)
[2024-01-09] MEDS ORDERED: SULTRIDS PO (20:35)
[2024-01-09] MEDS ORDERED: MULVITA PO (20:36)
[2024-01-09] MEDS ORDERED: Docosahexanoic Acid/EPA 1,000 MG CAP PO SCH (21:00)
[2024-01-09] MEDS ORDERED: Polyethylene Glycol 3350 17 gm PO SCH (21:00)
[2024-01-09] MEDS ORDERED: Docusate Sodium 100 MG Cap PO SCH (21:00)
[2024-01-09] MEDS ORDERED: Lactobacil 2-S.Thermo-Bifido 1 1 Cap PO SCH (21:00)
[2024-01-09 21:27] LABS: Source, Urine Nephrostomy
[2024-01-09 21:36] LABS: Appearance, Urine Hazy (Clear); Bilirubin, Urine Neg (Neg); Blood, Urine 5+ (Neg); Glucose Qualitative, Urine Neg (Neg); Ketones, Urine Neg (Neg); Leukocyte Esterase, Urine 3+ (Neg); Nitrite, Urine Neg (Neg); Protein, Urine 2+ (Neg); Urobilinogen, Urine NORM (Normal)
[2024-01-09 21:39] LABS: Color, Urine Pale Yellow (P-Yellow)
[2024-01-09 21:54] LABS: Bacteria Mod /hpf; Squamous Epithelial Cells Not Seen /hpf (Few)
[2024-01-10 03:17] VITALS: BP 125/75
--- NOTE | 2024-01-10 03:36 | NUR ---
0150 PATIENT TRANSFERRED VIA BED TO ROOM 364. RIGHT AND LEFT NEPHROSTOMY TUBES PATENT, DRAINING CLEAR URINE. UROSOTOMY, STOMA PINK AND MOIST ALSO DRAINING CLEAR URINE. IVF INFUSING INTO SALINE LOCK IN LAC. BED LOWERED AND ALARM ON. CALL LIGHT NEAR. PATIENT WATCHING TV. REMAINS IN CONTACT ISOLATION FOR MRSA IN HIS BLOOD.
[2024-01-10 05:06] LABS: BASOPHILS ABSOLUTE AUTO 0.04 K/mm3 (0.00-0.23); BASOPHILS PERCENT AUTO 0 % (0-2); EOSINOPHILS PERCENT AUTO 0 % (0-6); Hemoglobin 10.7 g/dL (13.5-17.5); IMMATURE GRAN ABSOLUTE AUTO 0.07 K/mm3 (0.00-0.10); IMMATURE GRAN PERCENT AUTO 1 % (0-1); LYMPHOCYTES ABSOLUTE AUTO 1.07 K/mm3 (0.84-5.20); LYMPHOCYTES PERCENT AUTO 7 % (21-46); MONOCYTES ABSOLUTE AUTO 1.61 K/mm3 (0.16-1.47); MONOCYTES PERCENT AUTO 11 % (4-13); Mean Corpuscular HGB 28.9 pg (26.0-34.0); Mean Corpuscular HGB Conc 33.4 g/dL (31.5-36.5); Mean Corpuscular Volume 87 fL (80-100); Mean Platelet Volume 9.8 fL (9.1-12.4); NEUTROPHILS ABSOLUTE AUTO 12.43 K/mm3 (1.96-9.15); NEUTROPHILS PERCENT AUTO 82 % (41-73); Platelet Count 189 K/mm3 (150-400); RDW Coefficient Variation 15.1 % (11.7-14.2); RDW Standard Deviation 47.8 fL (35.1-46.3); White Blood Cell Count 15.22 K/mm3 (4.00-11.30)
--- NOTE | 2024-01-10 05:10 | NUR ---
SHIFT SUMMARY PATIENT AWAKE WATCHING TV, DENIES NEEDS. IVF FLUIDS 125/HR ALL NIGHT.NEPHROSTOMY RIGHT AND LEFT AMD UROSTOMY ALL DRAINING WELL
[2024-01-10 05:31] LABS: Bun/Creatinine Ratio 12.5 (12.0-20.0); Calcium, Blood 8.4 mg/dL (8.5-10.1); Creatinine, Blood 1.6 mg/dL (0.60-1.20); Potassium, Blood 3.9 mmol/L (3.5-5.5)
[2024-01-10] MEDS ORDERED: Omeprazole 20 MG CapCR PO SCH (06:00)
[2024-01-10 07:51] VITALS: BP 131/72
[2024-01-10] MEDS ORDERED: Ascorbic Acid 500 MG Tab PO SCH (08:00)
[2024-01-10] MEDS ORDERED: Enoxaparin 40 MG/0.4 ML SYR SC SCH (09:00)
[2024-01-10] MEDS ORDERED: Sertraline HCl 50 MG Tab PO SCH (09:00)
[2024-01-10 13:05] LABS: Source, Urine Nephrostomy
[2024-01-10 13:17] LABS: Appearance, Urine Hazy (Clear); Bilirubin, Urine Neg (Neg); Blood, Urine 4+ (Neg); Color, Urine Yellow (P-Yellow); Glucose Qualitative, Urine Neg (Neg); Ketones, Urine 2+ (Neg); Leukocyte Esterase, Urine 3+ (Neg); Nitrite, Urine Neg (Neg); Protein, Urine 2+ (Neg); Urobilinogen, Urine NORM (Normal); pH, Urine 6.5 (5.0-8.0)
[2024-01-10 13:25] LABS: White Blood Cells, Urine TNTC /hpf (0-5)
[2024-01-10 13:26] LABS: Bacteria Few /hpf; Squamous Epithelial Cells Rare /hpf (Few)
[2024-01-10] MEDS ORDERED: CefTRIAXone Sodium 1,000 MG in NS 100 ML IV SCH (18:00)
--- NOTE | 2024-01-10 18:24 | NUR ---
SHIFT SUMMARY PT AXO TO SELF AND FOLLOWING DIRECTIONS. PT UP TO RECLINER WITH LIFT. URINE COLLECTED AND SENT TO LAB PER LAB REQUEST. LAB STATED THAT ER DID NOT SEND IT WHEN HE WAS ADMITTED. VSS. IV PATENT AND SALINE LOCKED. BED BATH THIS SHIFT. PT ALSO HAS ALOT OF GREEN DIARRHEA THIS SHIFT. THIS NURSE WILL PASS ON TO RETAIL SERVICE LEAD MERCHANDISER TO HOLD SOFTENERS R/T DIARRHEA. NO ACUTE CHANGES THIS SHIFT. FACE SHEET FAXED TO DR. MORE FOR CONSULT. BED IN KELLIE POSITION, CALL LIGHT WITHIN REACH.
[2024-01-10 20:00] VITALS: BP 129/82
[2024-01-11 04:39] VITALS: BP 137/83
--- NOTE | 2024-01-11 05:46 | NUR ---
SHIFT SUMMARY: Pt admitted for sepsis 2nd to uti and is a full code. Is alert and able to make some needs known. One word answers depending on item he wants or yes or no questions. Able to follow simple commands. ADLs have been one person during shift. On contact ISO for MRSA and MDRC. bi lateral nephrostomy tubes intact and draining. Urostomy appliance is intact and holding clear logan urine.
[2024-01-11 07:51] VITALS: BP 124/78
--- NOTE | 2024-01-11 08:00 | NUR ---
PT ALERT, DEV DELAY, SPEAKS YES/NO. OCCATIONALLY OTHER 1 WORD QUESTION/STATEMENTS. DENIES PAIN. PT HAS UROSTOMY DRAINING YELOW FLUID. HAS 2 NEPHROSTOMY TUBES, BILAT. COLLECTION BAGS ATTACHED TO LEGS. NEPHROSTOMY TUBES INTACT UPON ASSESSMENT. H/R REG, NO MURMUR NOTED. NO EDEMA NOTED. LUNGS CLEAR, RESP EASY, UNLABORED. ON R.A. BT X4 LAST BM NOT KNOWN BY PT. VOIDS ABOVE. SOME CONTRACTION ON ANKES AND L WRIST. POINTED TO TV, ASKED FOR BASEBALL. FOUND SPORTS CHANNEL WITH BASEBALL. PT SAID YES. BED IN LOW POSITION, CALL LITE IN REACH, BED ALARM ON FOR SAFETY.
[2024-01-11 09:37] LABS: Hematocrit 34.3 % (37.0-53.0); Hemoglobin 11.4 g/dL (13.5-17.5); Mean Corpuscular HGB 28.6 pg (26.0-34.0); Mean Corpuscular HGB Conc 33.2 g/dL (31.5-36.5); Mean Corpuscular Volume 86 fL (80-100); Mean Platelet Volume 9.4 fL (9.1-12.4); Platelet Count 184 K/mm3 (150-400); RDW Coefficient Variation 14.9 % (11.7-14.2); RDW Standard Deviation 47.8 fL (35.1-46.3); Red Blood Cell Count 3.99 M/mm3 (4.30-5.90); White Blood Cell Count 7.19 K/mm3 (4.00-11.30)
[2024-01-11 10:01] LABS: Bun/Creatinine Ratio 16.1 (12.0-20.0); Calcium, Blood 8.8 mg/dL (8.5-10.1); Creatinine, Blood 1.24 mg/dL (0.60-1.20); Potassium, Blood 3.8 mmol/L (3.5-5.5)
[2024-01-11 17:36] VITALS: BP 136/85
--- NOTE | 2024-01-11 18:31 | NUR ---
PT PLEASANT TODAY. LIKES BASEBALL. FOUND ON TV FOR HIM. HE PLEASED. EATING WELL. NEPHROSTOMY TUBES BOTH PUTTING OUT FLUID. ANTIBIOTICS BEING ADMIN AT THIS TIME. NO OTHER CONCERNS NOTED. BED IN LOW POSITION, CALL LITE IN REACH, BED ALARM ON FOR SAFETY
[2024-01-11 20:01] VITALS: BP 125/78
[2024-01-12 05:31] VITALS: BP 138/84
--- NOTE | 2024-01-12 08:00 | NUR ---
PT PLEASANT COOP SPEAKS IN 1 WORD MOSTLY YES NO. SOMETIMES NOT UNDERSTANDABLE. DENIES PAIN. LIKES BASEBALL AND FOOTBALL. H/R REG, NO MURMUR NOTED, NO TELE. NO EDEMA. LUNGS CLEAR, RESP EASY, UNLABORED. ON R.A. BT X4 ALST BM NOT KNOWN BY PT. 01/09 PER CHART. HAS UROSTOMY BAG COLLECTING YELLOW FLUID. HAS BILAT NEPHROSTOMY TUBES, ATTACHED. DRAINING YELLOW FLUID. CONTRACTURES AT WRISTS. BED IN LOW POSITION, CALL LITE IN REACH, BED ALARM ON FOR SAFETY
[2024-01-12 08:40] VITALS: BP 138/91
[2024-01-12 15:59] VITALS: BP 155/91
--- NOTE | 2024-01-12 18:56 | NUR ---
PT PLEASANT AND COOP TODAY. DR TOLD PT MIGHT GET TO GO HOME TOMORROW. PT EXCITED. NO C/O PAIN. STILL WANT TO WATCH SPORTS ALL DAY ON TV. EATING WELL. DID AHVE BM TODAY. UNFORMED. NO NEW CONCERNS NOTED. BED IN LOW POSITION, CALL LITE IN REACH, BED ALARM ON FOR SAFETY.
[2024-01-12 20:15] VITALS: BP 149/89
[2024-01-13 04:24] VITALS: BP 146/90
[2024-01-13 05:05] LABS: Bun/Creatinine Ratio 19.3 (12.0-20.0); Calcium, Blood 9.2 mg/dL (8.5-10.1); Creatinine, Blood 1.19 mg/dL (0.60-1.20); Potassium, Blood 4.1 mmol/L (3.5-5.5)
[2024-01-13 08:32] VITALS: BP 142/90
[2024-01-13 09:05] VITALS: BP 153/94
[2024-01-13] MEDS ORDERED: CEFP200 PO (11:48)
--- NOTE | 2024-01-13 13:20 | NUR ---
DC-1300 PT LEFT VIA PERSONAL FACTILITY WC TRANSPORTATION IN STABLE CONDITION. PT LEFT WITH ALL BELONGINGS.
== END 2024-01-13 13:00 | disposition home or self-care (01) | DRG 698 ==
LOC: ER 15:08 → MEDS 18:17
PROVIDERS: Physician Assistant; ADMIT Internal Medicine
DX: T83.512A Infection and inflammatory reaction due to nephrostomy catheter, initial encounter (principal); A41.9 Sepsis, unspecified organism; N12 Tubulo-interstitial nephritis, not specified as acute or chronic; N17.9 Acute kidney failure, unspecified; E87.1 Hypo-osmolality and hyponatremia; G11.9 Hereditary ataxia, unspecified; T83.518A Infection and inflammatory reaction due to other urinary catheter, initial encounter; N18.30 Chronic kidney disease, stage 3 unspecified; E87.6 Hypokalemia; K21.9 Gastro-esophageal reflux disease without esophagitis; F32.A Depression, unspecified; E78.5 Hyperlipidemia, unspecified; R62.50 Unspecified lack of expected normal physiological development in childhood; R82.81 Pyuria; R50.9 Fever, unspecified; D72.829 Elevated white blood cell count, unspecified; N40.0 Benign prostatic hyperplasia without lower urinary tract symptoms; Z93.6 Other artificial openings of urinary tract status; Z88.1 Allergy status to other antibiotic agents; Z88.0 Allergy status to penicillin; Z79.899 Other long term (current) drug therapy; I12.9 Hypertensive chronic kidney disease with stage 1 through stage 4 chronic kidney disease, or unspecified chronic kidney disease
CPT/HCPCS: 36415; 71046; 74177; 80048; 80053; 81001; 83605; 85025; 85027; 87040; 87077; 87086; 87147; 87186; 93005; 93010; 96361; 96365; 96375; 99284-25; A9270; J0696; J1650; J3480; J7030; J7050; Q9967

== ENCOUNTER 2024-11-21 21:29 | Emergency (ER) | payer OTHER ==
[~2024-11-21] VITALS: Ht 170.2 cm; Wt 63.5 kg
[~2024-11-21 21:29] MED LIST changes: +CEFP200 PO; +SULTRIDS PO
[2024-11-21 22:11] LABS: BASOPHILS ABSOLUTE AUTO 0.05 K/mm3 (0.00-0.23); BASOPHILS PERCENT AUTO 1 % (0-2); EOSINOPHILS ABSOLUTE AUTO 0.22 K/mm3 (0.00-0.68); EOSINOPHILS PERCENT AUTO 3 % (0-6); Hematocrit 39.8 % (37.0-53.0); IMMATURE GRAN ABSOLUTE AUTO 0.02 K/mm3 (0.00-0.10); IMMATURE GRAN PERCENT AUTO 0 % (0-1); LYMPHOCYTES ABSOLUTE AUTO 2.68 K/mm3 (0.84-5.20); LYMPHOCYTES PERCENT AUTO 34 % (21-46); MONOCYTES ABSOLUTE AUTO 0.73 K/mm3 (0.16-1.47); MONOCYTES PERCENT AUTO 9 % (4-13); Mean Corpuscular HGB 30.8 pg (26.0-34.0); Mean Corpuscular HGB Conc 35.2 g/dL (31.5-36.5); Mean Corpuscular Volume 88 fL (80-100); Mean Platelet Volume 9.2 fL (9.1-12.4); NEUTROPHILS ABSOLUTE AUTO 4.23 K/mm3 (1.96-9.15); NEUTROPHILS PERCENT AUTO 53 % (41-73); Platelet Count 249 K/mm3 (150-400); RDW Coefficient Variation 13.1 % (11.7-14.2); RDW Standard Deviation 41.5 fL (35.1-46.3); Red Blood Cell Count 4.55 M/mm3 (4.30-5.90); White Blood Cell Count 7.93 K/mm3 (4.00-11.30)
[2024-11-21 22:37] LABS: Albumin, Blood 3.3 g/dL (3.4-5.0); Albumin/Globulin Ratio 0.8 (0.8-1.8); Bilirubin, Total 0.4 mg/dL (0.1-1.0); Bun/Creatinine Ratio 24.2 (12.0-20.0); Calcium, Blood 8.7 mg/dL (8.5-10.1); Creatinine, Blood 1.2 mg/dL (0.60-1.20); Globulin, Blood 4.2 g/dL (2.2-4.0); Potassium, Blood 4.2 mmol/L (3.5-5.5); Total Protein, Blood 7.5 g/dL (6.4-8.2)
[2024-11-21 23:59] LABS: Source, Urine Clean Catch
[2024-11-22] MEDS ORDERED: Ciprofloxacin 400MG/D5 200ML 200 ML IV ONE (00:15)
[2024-11-22] MEDS ORDERED: Milk 150ML/Molasses 150ML (300ML Total) PR ONE (00:15)
[2024-11-22 00:29] LABS: Appearance, Urine Hazy (Clear); Bilirubin, Urine Neg (Neg); Blood, Urine 5+ (Neg); Color, Urine Brown (P-Yellow); Glucose Qualitative, Urine Neg (Neg); Ketones, Urine Neg (Neg); Leukocyte Esterase, Urine 3+ (Neg); Nitrite, Urine Pos (Neg); Protein, Urine 3+ (Neg); Urobilinogen, Urine NORM (Normal)
[2024-11-22 00:37] LABS: Bacteria Mod /hpf; Red Blood Cells, Urine TNTC /hpf (0-2); Squamous Epithelial Cells Few /hpf (Few)
[2024-11-22] MEDS ORDERED: MIRALAX17 GM PO (01:42)
[2024-11-22] MEDS ORDERED: CIPR500 PO (01:43)
[2024-11-22 02:30] VITALS: BP 143/81
== END 2024-11-22 02:44 | disposition home or self-care (01) ==
LOC: ER 21:29
PROVIDERS: Emergency Medicine
DX: N39.0 Urinary tract infection, site not specified (principal); R31.9 Hematuria, unspecified; K56.41 Fecal impaction; I10 Essential (primary) hypertension; K21.9 Gastro-esophageal reflux disease without esophagitis; Z88.1 Allergy status to other antibiotic agents; Z79.52 Long term (current) use of systemic steroids; Z79.899 Other long term (current) drug therapy
CPT/HCPCS: 74177; 80053; 81001; 85025; 87077; 87086; 87186; 96365; 99284-25; J0744; Q9967

== ENCOUNTER → 2025-01-26 | Outpatient (CLI) | payer OTHER ==
[2025-01-26 13:15] LABS: Appearance, Urine Cloudy (Clear); Bilirubin, Urine Neg (Neg); Blood, Urine 5+ (Neg); Glucose Qualitative, Urine Neg (Neg); Ketones, Urine Neg (Neg); Leukocyte Esterase, Urine 3+ (Neg); Nitrite, Urine Neg (Neg); Protein, Urine 3+ (Neg); Urobilinogen, Urine NORM (Normal)
[2025-01-26 13:38] LABS: Color, Urine Pale Yellow (P-Yellow)
[2025-01-26 13:39] LABS: Amorphous Light (0-Heavy); Bacteria Many /hpf; Granular Casts 0-2 /lpf (0); Hyaline Casts 0-2 /lpf (0-2); Squamous Epithelial Cells Rare /hpf (Few); White Blood Cells, Urine 50-100 /hpf (0-5)
== END | disposition home or self-care (01) ==
LOC: LAB SHORT 10:49 → LAB 10:49 → LAB FUT 01-25 11:20 → EDSTATUS 01-25 11:20
PROVIDERS: Urology
DX: N39.0 Urinary tract infection, site not specified (principal)
CPT/HCPCS: 81001; 87077; 87086; 87186

== ENCOUNTER 2025-02-03 09:54 | Emergency (ER) | payer OTHER ==
[~2025-02-03] VITALS: Ht 165.1 cm; Wt 64.9 kg
[2025-02-03 10:30] VITALS: BP 152/93
[2025-02-03 11:40] LABS: BASOPHILS ABSOLUTE AUTO 0.03 K/mm3 (0.00-0.23); BASOPHILS PERCENT AUTO 1 % (0-2); EOSINOPHILS ABSOLUTE AUTO 0.12 K/mm3 (0.00-0.68); EOSINOPHILS PERCENT AUTO 2 % (0-6); Hematocrit 43.6 % (37.0-53.0); Hemoglobin 14.6 g/dL (13.5-17.5); IMMATURE GRAN ABSOLUTE AUTO 0.02 K/mm3 (0.00-0.10); IMMATURE GRAN PERCENT AUTO 0 % (0-1); LYMPHOCYTES ABSOLUTE AUTO 2.03 K/mm3 (0.84-5.20); LYMPHOCYTES PERCENT AUTO 31 % (21-46); MONOCYTES ABSOLUTE AUTO 0.52 K/mm3 (0.16-1.47); MONOCYTES PERCENT AUTO 8 % (4-13); Mean Corpuscular HGB 29.7 pg (26.0-34.0); Mean Corpuscular HGB Conc 33.5 g/dL (31.5-36.5); Mean Corpuscular Volume 89 fL (80-100); Mean Platelet Volume 9.1 fL (9.1-12.4); NEUTROPHILS ABSOLUTE AUTO 3.77 K/mm3 (1.96-9.15); NEUTROPHILS PERCENT AUTO 58 % (41-73); Platelet Count 257 K/mm3 (150-400); RDW Coefficient Variation 13.2 % (11.7-14.2); RDW Standard Deviation 42.6 fL (35.1-46.3); Red Blood Cell Count 4.92 M/mm3 (4.30-5.90); White Blood Cell Count 6.49 K/mm3 (4.00-11.30)
[2025-02-03 12:00] LABS: Albumin, Blood 3.4 g/dL (3.4-5.0); Albumin/Globulin Ratio 0.7 (0.8-1.8); Bilirubin, Total 0.6 mg/dL (0.1-1.0); Bun/Creatinine Ratio 22.1 (12.0-20.0); Calcium, Blood 8.6 mg/dL (8.5-10.1); Creatinine, Blood 1.04 mg/dL (0.60-1.20); Globulin, Blood 4.7 g/dL (2.2-4.0); Potassium, Blood 3.9 mmol/L (3.5-5.5); Total Protein, Blood 8.1 g/dL (6.4-8.2)
[2025-02-03 12:16] LABS: Source, Urine Suprapubic Cath
[2025-02-03 12:25] LABS: Appearance, Urine Cloudy (Clear); Bilirubin, Urine Neg (Neg); Blood, Urine 4+ (Neg); Glucose Qualitative, Urine Neg (Neg); Ketones, Urine Neg (Neg); Leukocyte Esterase, Urine 3+ (Neg); Nitrite, Urine Pos (Neg); Protein, Urine 3+ (Neg); Urobilinogen, Urine NORM (Normal)
[2025-02-03 13:01] LABS: Color, Urine Pale Yellow (P-Yellow)
[2025-02-03 13:02] LABS: Red Blood Cells, Urine 25-50 /hpf (0-2); White Blood Cells, Urine TNTC /hpf (0-5)
[2025-02-03 13:03] LABS: Bacteria Many /hpf; Squamous Epithelial Cells Not Seen /hpf (Few)
== END 2025-02-03 12:40 | disposition left against medical advice (07) ==
LOC: ER 09:54
PROVIDERS: Student in an Organized Health Care Education/Training Program
DX: N39.0 Urinary tract infection, site not specified (principal); Z53.29 Procedure and treatment not carried out because of patient's decision for other reasons
CPT/HCPCS: 80053; 81001; 85025; 87086; 99281

== ENCOUNTER 2025-02-05 08:11 | Inpatient (IN) | payer OTHER ==
[~2025-02-05] VITALS: Ht 165.1 cm; Wt 64.9 kg
[2025-02-05 10:19] LABS: BASOPHILS ABSOLUTE AUTO 0.03 K/mm3 (0.00-0.23); BASOPHILS PERCENT AUTO 1 % (0-2); EOSINOPHILS ABSOLUTE AUTO 0.11 K/mm3 (0.00-0.68); EOSINOPHILS PERCENT AUTO 2 % (0-6); Hematocrit 44.8 % (37.0-53.0); Hemoglobin 14.8 g/dL (13.5-17.5); IMMATURE GRAN ABSOLUTE AUTO 0.03 K/mm3 (0.00-0.10); IMMATURE GRAN PERCENT AUTO 1 % (0-1); LYMPHOCYTES ABSOLUTE AUTO 1.96 K/mm3 (0.84-5.20); LYMPHOCYTES PERCENT AUTO 30 % (21-46); MONOCYTES ABSOLUTE AUTO 0.53 K/mm3 (0.16-1.47); MONOCYTES PERCENT AUTO 8 % (4-13); Mean Corpuscular HGB 29.9 pg (26.0-34.0); Mean Corpuscular Volume 91 fL (80-100); Mean Platelet Volume 9.3 fL (9.1-12.4); NEUTROPHILS ABSOLUTE AUTO 3.95 K/mm3 (1.96-9.15); NEUTROPHILS PERCENT AUTO 60 % (41-73); Platelet Count 255 K/mm3 (150-400); RDW Coefficient Variation 13.7 % (11.7-14.2); RDW Standard Deviation 44.8 fL (35.1-46.3); Red Blood Cell Count 4.95 M/mm3 (4.30-5.90); White Blood Cell Count 6.61 K/mm3 (4.00-11.30)
[2025-02-05 10:45] LABS: Albumin, Blood 3.4 g/dL (3.4-5.0); Albumin/Globulin Ratio 0.7 (0.8-1.8); Bilirubin, Total 0.5 mg/dL (0.1-1.0); Bun/Creatinine Ratio 27.5 (12.0-20.0); Calcium, Blood 8.9 mg/dL (8.5-10.1); Creatinine, Blood 1.09 mg/dL (0.60-1.20); Globulin, Blood 5.1 g/dL (2.2-4.0); Potassium, Blood 5.5 mmol/L (3.5-5.5); Total Protein, Blood 8.5 g/dL (6.4-8.2)
[2025-02-05] MEDS ORDERED: TUSSIN MUC100 MG/5 M (11:24)
[2025-02-05] MEDS ORDERED: cefTAZidime 2,000 MG in NS 100 ML IV ONE (16:10)
[2025-02-05] MEDS ORDERED: Acetaminophen 325 MG TABLET PO PRN (17:10)
[2025-02-05] MEDS ORDERED: LORazepam 0.5 MG Tab PO PRN (17:10)
[2025-02-05] MEDS ORDERED: cefTAZidime 1,000 MG in NS 50 ML IV SCH (17:15)
[2025-02-05] MEDS ORDERED: Sertraline HCl 50 MG Tab PO SCH (18:00)
[2025-02-05 18:56] VITALS: BP 165/98
[2025-02-05 20:12] VITALS: BP 160/94
[2025-02-05] MEDS ORDERED: Omeprazole 20 MG CapCR PO SCH (21:00)
[2025-02-05] MEDS ORDERED: NS 250 ML IV PRN (21:40)
--- NOTE | 2025-02-06 04:26 | NUR ---
SHIFT SUMMARY: PT IS ALERT WITH DEVELOPMENTAL DELAY. PT RESPONDS APPROPRIATELY TO QUESTION WITH ONE WORD ANSWERS. PT IS MOSTLY BED BOUND BUT DOES TRANSFER TO A W/C, NOT OUT OF BED OVERNIGHT. PT SHOWS NO S/S FOR PAIN, NAUSEA, VOMITING, OR SOB. NO ACUTE CHANGES OR EVENTS OVERNIGHT. BED IN LOW POSITION, CALL LIGHT WITHIN REACH. WILL CONTINUE TO MONITOR AND REPORT TO DAY NURSE.
[2025-02-06 04:59] LABS: BASOPHILS ABSOLUTE AUTO 0.05 K/mm3 (0.00-0.23); BASOPHILS PERCENT AUTO 1 % (0-2); EOSINOPHILS ABSOLUTE AUTO 0.17 K/mm3 (0.00-0.68); EOSINOPHILS PERCENT AUTO 2 % (0-6); Hematocrit 40.2 % (37.0-53.0); Hemoglobin 13.5 g/dL (13.5-17.5); IMMATURE GRAN ABSOLUTE AUTO 0.02 K/mm3 (0.00-0.10); IMMATURE GRAN PERCENT AUTO 0 % (0-1); LYMPHOCYTES ABSOLUTE AUTO 2.06 K/mm3 (0.84-5.20); LYMPHOCYTES PERCENT AUTO 29 % (21-46); MONOCYTES ABSOLUTE AUTO 0.65 K/mm3 (0.16-1.47); MONOCYTES PERCENT AUTO 9 % (4-13); Mean Corpuscular HGB 29.9 pg (26.0-34.0); Mean Corpuscular HGB Conc 33.6 g/dL (31.5-36.5); Mean Corpuscular Volume 89 fL (80-100); Mean Platelet Volume 9.2 fL (9.1-12.4); NEUTROPHILS ABSOLUTE AUTO 4.29 K/mm3 (1.96-9.15); NEUTROPHILS PERCENT AUTO 59 % (41-73); Platelet Count 232 K/mm3 (150-400); RDW Coefficient Variation 13.2 % (11.7-14.2); RDW Standard Deviation 42.6 fL (35.1-46.3); Red Blood Cell Count 4.52 M/mm3 (4.30-5.90); White Blood Cell Count 7.24 K/mm3 (4.00-11.30)
[2025-02-06 05:59] LABS: Bun/Creatinine Ratio 20.2 (12.0-20.0); Calcium, Blood 8.5 mg/dL (8.5-10.1); Creatinine, Blood 1.24 mg/dL (0.60-1.20); Potassium, Blood 3.6 mmol/L (3.5-5.5)
[2025-02-06 07:40] VITALS: BP 167/98
[2025-02-06] MEDS ORDERED: Polyethylene Glycol 3350 17 gm PO SCH (09:00)
[2025-02-06] MEDS ORDERED: Docusate Sodium 100 MG Cap PO SCH (09:00)
[2025-02-06] MEDS ORDERED: Enoxaparin 40 MG/0.4 ML SYR SC SCH (09:00)
[2025-02-06] MEDS ORDERED: Lactated Ringer's 1,000 ML IV SCH (09:00)
[2025-02-06 15:44] VITALS: BP 164/109
--- NOTE | 2025-02-06 17:13 | NUR ---
SHIFT SUMMARY PT IS ALERT BUT DEVELOPMENTALLY DELAYED. ABLE TO PROVIDE ONE WORD RESPONSES. PT IS UNABLE TO PUSH CALL LIGHT TO EXPRESS NEEDS. NO ACUTE CHANGES T/O SHIFT. PT IS RESTING IN BED WITH BED IN LOWEST POSITION.
[2025-02-06 19:46] VITALS: BP 162/99
[2025-02-07 05:13] VITALS: BP 150/97
[2025-02-07 06:14] LABS: Bun/Creatinine Ratio 22.4 (12.0-20.0); Calcium, Blood 8.7 mg/dL (8.5-10.1); Creatinine, Blood 1.07 mg/dL (0.60-1.20); Potassium, Blood 3.7 mmol/L (3.5-5.5)
--- NOTE | 2025-02-07 06:30 | NUR ---
309 SHIFT SUMMARY PT HAS BEEN PLEASANT AND COOPERATIVE WITH CARE. HE SLEPT SOUNDLY THROUGH SHIFT WITHOUT COMPLAINT. PT DENIES PAIN UPON ROUNDING. CONTINUING TO MONITOR. WILL PASS ON TO DAY SHIFT. CALL LIGHT IN REACH.
[2025-02-07 07:36] VITALS: BP 188/105
[2025-02-07 10:30] VITALS: BP 130/90
[2025-02-07 15:14] VITALS: BP 173/106
--- NOTE | 2025-02-07 18:36 | NUR ---
ASSUMED CARE OF PT UNEVENTFUL DAY FOR PT NO C/O PAIN NO DISTRESS. PT WAS CHECKED ON Q ONE HOUR BY ME OR BOX LOADER. EVERY HOUR PT WAS ASKED TO TURN TO ONE SIDE OR ANOTHER AND REFUSED. I THEN ATTEMPTED TO TURN PT AGAINST HIS WILL AND PT GREW VERY TENSE AND AGITATED. PT WAS CLEARLY NOT WANTING TO BE LAYED ON SIDE. I CHECKED ON BACK SIDE OF PT FOR ANY BREAKDOWN BUT NONE WAS NOTED. PT HAD LARGE BM AND ALLOWED US TO CHANGE HIM WITHOUT INCIDENT.
[2025-02-07 19:20] VITALS: BP 171/110
[2025-02-07 19:22] VITALS: BP 168/104
[2025-02-08 03:05] VITALS: BP 132/85
--- NOTE | 2025-02-08 06:19 | NUR ---
SHIFT SUMMARY PT PLEASANT AND COOPERATIVE WITH CARE THIS SHIFT. MEDICATED PER EMAR, AND SLEPT THROUGH NIGHT. PT WOKE FOR BRIEF CHANGE. UROSTOMY BAG WAS LEAKING AND PT AND BED WERE VERY WET. UROSTOMY KIT CHANGED OUT. PT TOLLERATED WELL. PT CONTINUES TO DENY PAIN OR DISCOMFORT. CALL LIGHT IN REACH AND PT CURRENTLY RESTING IN BED WITH BED ALARM ON FOR SAFETY.
[2025-02-08 07:47] VITALS: BP 151/92
--- NOTE | 2025-02-08 08:29 | NUR ---
ASSUMED CARE OF PT PT VERY PLEASENT DEVELOPMENTALLY DELAYED PT WHO IS A LITTLE DIFFICULT TO ACCESS. PT STATED THIS AM THAT HE WAS HAVING PAIN IN CHEST, VITAL SIGNS WNL IS AWARE. I ASKED PT IF THIS WAS NEW BUT WASNT ABLE TO GET CLR ANSWER. PT DID NOT SEEN ANXIOUS, BUT REFUSED HIS MEDS THIS MORNING AND STATED "LATER". WILL CONT MONTORING
--- NOTE | 2025-02-08 10:23 | NUR ---
1020 REASSESSED PT. PT STATED HE NO LONGER HAD ANY PAIN AND WAS DOING FINE. PT STILL DIDNT WANT ANY MEDICATION AND STATED "LATER". WILL CONT TO MONITOR
--- NOTE | 2025-02-08 14:37 | NUR ---
SPOKE WITH PT AGAIN ABOUT TAKING HIS MEDICATION, PT AGAIN REFUSED, I TRIED TO EDUCATE PT ON ITS IMPORTANCE BUT HE STILL WOULDNT ALLOW ME. SPOKE WITH JAIRO VARGAS AT THE FACILITY WHERE PT LIVE AND SHE SAID YES HE DOES THAT AND WILL SAY NO UNTIL HE SAYS YES. I WILL KEEP TRYING TO MEDICATE PT.
[2025-02-08 15:43] VITALS: BP 136/93
--- NOTE | 2025-02-08 17:41 | NUR ---
AGAIN ATTEMPTED TO INFUSE MEDICATION BUT PT WOULD NOT ALLOW ME. I SPOKE WITH KAYLIE A SASH REPAIRER AT FACILITY AND SHE STATED THAT YES SOMETIMES HE DOESNT WANT TO DO THINGS HE NEEDS TOO UNLESS HE IS GIVEN SOMETHING TO CALM HIM. I ALSO LEFT MESSAGE WITH NELDA WAGNER
[2025-02-08 19:16] VITALS: BP 126/77
[2025-02-09 03:17] VITALS: BP 156/88
--- NOTE | 2025-02-09 04:06 | NUR ---
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 PATIENT ALERT, ANSWERS APPROPRIATELY IN ONE WORD SENTENCES DUE TO DEVELOPMENTAL DELAY. PATIENT COOPERATIVE WITH CARE AND ACCEPTED ANTIBIOTICS DURING NOCT SHIFT. PATIENT ABLE TO MOVE SELF FREELY IN BED. HAS BEEN RESTING QUIETLY NO NOTED EPISODES OF RESTLESSNESS. CALL LIGHT WITHIN REACH. BED RAILS UP X2. PATIENT IN CONTACT PRECAUTIONS DUE TO MRSA. BED IN LOWEST POSITION FOR SAFETY. WILL CONTINUE TO MONITOR.
--- NOTE | 2025-02-09 04:15 | NUR ---
NURSE STUDENT PRECEPTOR NOTE I HAVE WORKED ALONG SIDE OF/WITH STUDENT AND HAVE READ AND AGREE WITH HER DOCUMENTATION.
[2025-02-09 07:41] VITALS: BP 149/104
[2025-02-09 15:46] VITALS: BP 150/94
--- NOTE | 2025-02-09 18:04 | NUR ---
SUMMARY PATIENT HAPPY/COOPERATIVE WITH CARE TODAY. HAD TWO VISITORS FROM HIS [facility] COME BY. TOLERATED IV ANTIBX WELL THROUGH LEFT HAND IV. UROSTOMY WNL AND DRAINING YELLOW URINE. NO BM THIS SHIFT.
[2025-02-09 19:16] VITALS: BP 157/102
--- NOTE | 2025-02-10 03:09 | NUR ---
POT RELINER SHIFT SUMMARY PATIENT ADMITTED FOR UTI AND MRSA. PATIENT ON CONTACT PRECAUTIONS AT THIS TIME. ALERT AND ORIENTED X1. PATIENT DEVELOPMENTALLY DELAYED AND SPEAKS IN SIMPLE 1-2 WORD SENTENCES. ANSWERS QUESTIONS APPROPRIATELY ALTHOUGH MAY BE SLOW TO RESPOND AT TIMES. VITAL SIGNS STABLE. UROSTOMY PATENT DRAINING CLEAR YELLOW COLORED URINE. PATIENTS SISTER IN LAW HAS GUARDIANSHIP OF PATIENT. PATIENT REMAINS BED AND WHEELCHAIR BOUND AT THIS TIME. CALL LIGHT REMAINS IN REACH, PATIENT STRUGGLES TO USE CALL LIGHT SO FREQUENT CHECKS ARE BEING PERFORMED FOR SAFETY AND TO ENSURE NEEDS ARE BEING MET. PATIENT RESTING QUIETLY INTERMITTENLY WITH FEW INTERRUPTIONS. BED RAILS UP X2. BED IN LOWEST POSITION FOR SAFETY. WILL CONTINUE TO MONITOR.
--- NOTE | 2025-02-10 03:31 | NUR ---
NURSE STUDENT PRECEPTOR NOTE I HAVE WORKED ALONG SIDE OF/WITH STUDENT AND HAVE READ AND AGREE WITH HER DOCUMENTATION.
[2025-02-10 04:05] VITALS: BP 114/80
[2025-02-10 05:11] LABS: Hematocrit 39.7 % (37.0-53.0); Hemoglobin 13.9 g/dL (13.5-17.5); Mean Corpuscular HGB 30.3 pg (26.0-34.0); Mean Corpuscular Volume 87 fL (80-100); Mean Platelet Volume 9.1 fL (9.1-12.4); Platelet Count 221 K/mm3 (150-400); RDW Coefficient Variation 13.3 % (11.7-14.2); RDW Standard Deviation 41.3 fL (35.1-46.3); Red Blood Cell Count 4.58 M/mm3 (4.30-5.90); White Blood Cell Count 6.29 K/mm3 (4.00-11.30)
[2025-02-10 05:44] LABS: Bun/Creatinine Ratio 23.6 (12.0-20.0); Calcium, Blood 8.6 mg/dL (8.5-10.1); Creatinine, Blood 1.1 mg/dL (0.60-1.20); Potassium, Blood 3.8 mmol/L (3.5-5.5)
[2025-02-10 07:23] VITALS: BP 136/98
[2025-02-10] MEDS ORDERED: Bisacodyl 10 MG Supp PR PRN ×2 (13:25)
[2025-02-10] MEDS ORDERED: Magnesium Hydroxide Conc 10 ML UDC PO PRN ×2 (13:25→13:30)
--- NOTE | 2025-02-10 13:44 | NUR ---
BOWEL CARE CALLED DR SHERIFF TO DISCUSS PT LACK OF BM X3 DAYS. ORDERS RECEIVED. PT AGREED TO DRINK PRUNE JUICE. CARE ONGOING.
[2025-02-10 15:51] VITALS: BP 152/92
--- NOTE | 2025-02-10 18:53 | NUR ---
NOTE PT ALERT AND COOPERTIVE. MKES HIS NEEDS KNOWN. VSS. PT HAS NOT HADA BM IN 3 DAYS. GAVE PRUNE JUICE WITH BUTTER. NO BM. MEDCIATED WITH MILK OF MAGNESIA X1 WITH DINNER. AWAITING RESULTS. ENCOURAGED FLUIDS. GOOD OUTPT PER UROSTOMY. PT LIKES PEPSI. PT AGREEABLE TO ANTIBIOTICS. DENIED DISOCOMFORT. BED BATH GIVEN. NO SKIN ISSUES NOTED. ATTENDS ON. CARE ON GOING.
[2025-02-10 20:09] VITALS: BP 161/100
--- NOTE | 2025-02-11 04:05 | NUR ---
SHIFT SUMMARY: A&O TO SELF. PT HAS DEVELOPMENTAL DELAY RESULTING IN 1 WORD RESPONSES TO QUESTIONS. PT RECIEVED LAST DOSE OF CEFTRAZIDIME FOR UTI. 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 PT HAS UROSTOMY WITH CLEAR YELLOW URINE. PT DID NOT HAVE BM THIS SHIFT, LAST BM WAS THE 11TH. PT DENIES ANY ABDOMINAL PAIN OR DISCOMFORT. FREQUENT ROUNDING PERFORMED. CALL LIGHT IS WITHIN REACH.
[2025-02-11 04:36] VITALS: BP 142/106
[2025-02-11] MEDS ORDERED: Sennosides 8.6 MG Tab PO PRN (06:45)
[2025-02-11 07:21] VITALS: BP 163/104
--- NOTE | 2025-02-11 08:49 | NUR ---
BOWEL CARE CALLED JAIRO AT PT [facility] FOR ADVICE. SHE WAS NOT SURPRISED THAT HE HASN'T HAD A BM. HE WILL HOLD IT THERE TOO UNTIL HE IS HOME. HE WON'T HAVE A BM AT THE THE DAY PROGRAM. CLARIFIED IF HIS LACK OF BM IS A NO DISCHARGE. JAIRO STATED ITS NOT A PROBLEM. CALLED DR SHERIFF TO REQUEST DISCHARGE ORDERS. CARE ON GOING.
--- NOTE | 2025-02-11 10:39 | NUR ---
DISCHARGE PT DISCHARGE HOME WITH CAREGIVER JAIRO VIA HOME W/C. PT ANXIOUS AND READY TO GO. IV REMOVED FROM RIGHT HAND. PRESSURE DRESSING APPLIED. CARE ONGOING.
== END 2025-02-11 10:32 | disposition home or self-care (01) | DRG 699 ==
LOC: ER 08:11 → MEDS 17:05 → ERHOLD 17:05 → MEDS 19:00
PROVIDERS: Student in an Organized Health Care Education/Training Program; ADMIT Hospitalist
DX: T83.593A Infection and inflammatory reaction due to other urinary stents, initial encounter (principal); Z16.24 Resistance to multiple antibiotics; N40.0 Benign prostatic hyperplasia without lower urinary tract symptoms; F32.A Depression, unspecified; I10 Essential (primary) hypertension; K21.9 Gastro-esophageal reflux disease without esophagitis; Z96.649 Presence of unspecified artificial hip joint; R62.50 Unspecified lack of expected normal physiological development in childhood; B96.89 Other specified bacterial agents as the cause of diseases classified elsewhere; Z90.79 Acquired absence of other genital organ(s); Z98.890 Other specified postprocedural states; Z88.1 Allergy status to other antibiotic agents; Z88.8 Allergy status to other drugs, medicaments and biological substances; Z79.899 Other long term (current) drug therapy; Z93.6 Other artificial openings of urinary tract status; Z86.19 Personal history of other infectious and parasitic diseases
CPT/HCPCS: 36415; 80048; 80053; 81001; 85025; 85027; 87086; 96365; 99281; 99284-25; A9270; J0713; J1650; J7050